=== PATIENT | female | born 1945 | race African-American/Black ===

== ENCOUNTER 2020-06-03 01:20 | Emergency (ER) | payer MEDICARE, OTHER ==
[~2020-06-03] VITALS: Ht 162.6 cm; Wt 68.2 kg
[2020-06-03 01:20] VITALS: BP 155/83
[2020-06-03 15:02] VITALS: BP 140/65
== END 2020-06-03 15:01 ==
LOC: MED 01:20
DX: S50.312A Abrasion of left elbow, initial encounter (principal); I10 Essential (primary) hypertension; N28.9 Disorder of kidney and ureter, unspecified; W06.XXXA Fall from bed, initial encounter; Y93.89 Activity, other specified; Y92.89 Other specified places as the place of occurrence of the external cause; Y99.8 Other external cause status
CPT/HCPCS: 99285

== ENCOUNTER 2020-06-27 07:32 | Inpatient (IN) | payer MEDICARE, OTHER, SELFPAY ==
[~2020-06-27] VITALS: Ht 160 cm; Wt 63.5 kg
[2020-06-27 07:32] VITALS: BP 152/79
--- NOTE | 2020-06-27 07:32 | NUR ---
PATIENT BIBA BLS TO ER BED 10
--- NOTE | 2020-06-27 07:32 | NUR ---
PATIENT PRESENTS TO ED [facility]IA [facility] FROM [facility]. WITH C/O CRACKED DIALYSIS CATHETER, PT RECEIVES DIALYSIS ON MONDAY, MONDAY, MONDAY. DENIES N/V/D; SKIN IS PINK/WARM/DRY; AAOX4. LUNGS CLEAR BL; HR EVEN AND REGULAR; PT DENIES ANY FEVER, CP, SOB, OR COUGH AT THIS TIME; PATIENT STATES PAIN OF 0/10 AT THIS TIME; VSS; PATIENT POSITIONED FOR COMFORT;WARM BLANKETS GIVEN; HOB ELEVATED; BEDRAILS UP X2; BED DOWN. ER MD MADE AWARE OF PT STATUS.
--- NOTE | 2020-06-27 08:08 | NUR ---
DR. HERNANDEZ AT BEDSIDE FOR EXAM
[2020-06-27 08:43] LABS: BASOPHILS # (AUTO) 0.1 K/uL (0.00-0.22); BASOPHILS % (AUTO) 0.9 % (0.0-2.0); EOSINOPHILS # (AUTO) 0.3 K/uL (0-0.4); EOSINOPHILS % (AUTO) 2.6 % (0.0-4.0); HEMATOCRIT 27.4 % (36-48); HEMOGLOBIN 8.7 g/dL (12.0-16.0); LYMPHOCYTES # (AUTO) 0.8 K/uL (2.5-16.5); LYMPHOCYTES % (AUTO) 6.8 % (20.5-51.1); MEAN CORPUSCULAR HEMOGLOBIN 30 pg (27-31); MEAN CORPUSCULAR HGB CONC 32 g/dL (33-37); MEAN CORPUSCULAR VOLUME 93.3 fL (80-94); MONOCYTES # (AUTO) 1.2 K/uL (0.8-1.0); NEUTROPHILS # (AUTO) 9.8 K/uL (1.8-7.7); NEUTROPHILS % (AUTO) 79.7 % (42.2-75.2); PLATELET COUNT (AUTO) 767 K/uL (140-450); RED BLOOD CELL COUNT(AUTO) 2.94 MIL/uL (4.20-5.40); RED CELL DISTRIBUTION WIDTH 16.6 % (11.6-13.7); WHITE BLOOD COUNT (AUTO) 12.3 K/uL (4.8-10.8)
[2020-06-27 09:30] LABS: ALBUMIN 3.3 g/dL (3.4-5.0); ANION GAP 12.3 (8-16); ASPARTATE AMINOTRANSFERASE 14 U/L (15-37); CARBON DIOXIDE 30.8 mmol/L (21-32); CHLORIDE 98 mmol/L (98-107); GLUCOSE 104 mg/dL (74-106); POTASSIUM 4.1 mmol/L (3.5-5.1); SODIUM SERUM 137 mmol/L (136-145); TOTAL BILIRUBIN 0.4 mg/dL (0.0-1.0); UREA NITROGEN, BLOOD 39 mg/dL (7-18)
[2020-06-27 09:35] LABS: CREATININE 7.8 mg/dL (0.6-1.3)
--- NOTE | 2020-06-27 09:35 | NUR ---
CRITICAL VALUE RECEIVED FROM CREATININE 7.8 Addendum: 06/27/[address] MARY ALMAGUERIED
[2020-06-27] MEDS ORDERED: MORPHINE SULFATE 2 MG/ML SYR IVP PRN (09:55)
[2020-06-27] MEDS ORDERED: HYDROcodone/APAP 5/325 MG 1 TAB TAB PO PRN (09:55)
[2020-06-27] MEDS ORDERED: DOCUSATE SODIUM 100 MG GELCAP PO PRN (09:55)
[2020-06-27] MEDS ORDERED: ONDANSETRON 4 MG/2 ML VIAL IM/IVP PRN (09:55)
[2020-06-27] MEDS ORDERED: NACL 0.9% 1,000 ML IV SCH (09:55)
[2020-06-27] MEDS ORDERED: ZOLPIDEM 5 MG TAB PO PRN (09:55)
[2020-06-27] MEDS ORDERED: ACETAMINOPHEN 325 MG TAB PO PRN (09:55)
[2020-06-27] MEDS ORDERED: MAG SULF 2000 MG/WATER PREMIX 50 ML IV PRN (10:00)
[2020-06-27] MEDS ORDERED: [UNRECOGNIZED DRUG - CODE] PO (10:36)
[2020-06-27] MEDS ORDERED: CARER90 PO (10:36)
[2020-06-27] MEDS ORDERED: GABA100C PO (10:36)
[2020-06-27] MEDS ORDERED: ACET-2619 PO ×2 (10:36)
[2020-06-27] MEDS ORDERED: METO100T14 PO (10:36)
[2020-06-27] MEDS ORDERED: VITA1TAB44 PO (10:36)
[2020-06-27] MEDS ORDERED: CALC667T8 PO (10:36)
[2020-06-27] MEDS ORDERED: HYDR-3233 PO (10:36)
[2020-06-27] MEDS ORDERED: [UNRECOGNIZED DRUG - CODE] PO (10:36)
[2020-06-27] MEDS ORDERED: DOCU-299 PO (10:36)
[2020-06-27] MEDS ORDERED: HYDR-5122 PO (10:36)
[2020-06-27] MEDS ORDERED: BRIM5SOL3 OP (10:36)
[2020-06-27] MEDS ORDERED: LACT25CA (10:36)
[2020-06-27 11:12] LABS: CHOL/HDL RATIO 2.2 (1-4.5); MAGNESIUM 2.7 mg/dL (1.8-2.4); PHOSPHORUS 2.8 mg/dL (2.5-4.9)
--- NOTE | 2020-06-27 12:00 | NUR ---
AWAKE AND ALERT. DENIES PAIN OR DISCOMFORT. C/O BEING COLD, WARM BLANKETS GIVEN.
--- NOTE | 2020-06-27 14:25 | NUR ---
C/O NAUSEA. PT IS ANXIOUS AND SLIGHTLY RESTLESS. MEDICATED ORDERED FOR NAUSEA & ANXIETY. ASSISTED WITH REPOSITIONING. MADE COMFORTABLE
[2020-06-27] MEDS: LORazepam 2 MG/ML VIAL IM/IVP PRN (14:41)
--- NOTE | 2020-06-27 16:30 | NUR ---
DR. LY AT BEDSIDE FOR EXAM
--- NOTE | 2020-06-27 18:37 | NUR ---
RESTING IN BED WITH EYES CLOSED. RESPIRATIONS REGULAR AND UNLABORED. CM REMAINS SR WITHOUT ECTOPY. REMAINS NPO
--- NOTE | 2020-06-27 19:16 | NUR ---
RECEIVED REPORT FROM HAYLEE MOSS FOR CONTINUATION OF CARE.
--- NOTE | 2020-06-27 19:25 | NUR ---
REPOSITIONED PT FOR COMFORT IN BED, BED IS LOCKED AND IN LOWEST POSITION. SIDE RAILS ARE UP X2 FOR PT SAFETY. PT IS CONNECTED TO THE PLASTICS TECHNICIAN. PT IS NOT IN ANY ACUTE DISTRESS AT THIS TIME. WILL CONTINUE TO MONITOR.
--- NOTE | 2020-06-27 19:50 | NUR ---
REPOSITIONED PT FOR COMFORT AND SAEFTY. SIDE RAILS X2. BED IS LOCKED AND IN LOWEST POSITION. PT CONNECTED TO THE HOLLOW WARE MAKER. SAO2 @95%
[2020-06-27 20:00] VITALS: BP 182/95
--- NOTE | 2020-06-27 20:08 | NUR ---
CALLED AND GAVE REPORT TO HAYLEE PETERSEN FOR CONTINUATION OF CARE.
--- NOTE | 2020-06-27 20:30 | NUR ---
ADMITTED 74 Y/O FEMALE FROM [facility]. ALERT ORIENTED, PT KNOWS HER NAME, BIRTHDAY AND WHERE SHE IS. ABLE TO MAKE NEEDS KNOWN. ON ROOM AIR, HAS RAC 20 G, INTACT, LEFT UPPER CHEST DIALYSIS CATH. ON NPO, MRSA SWAB DONE, V/S TAKEN, ORIENTED TO ROOM, W/ OPEN SUPERFICIAL WOUND ON SACROCOCCYX. FALL PRECAUTION IN PLACE, SAFETY MEASURES IN PLACE, CALL LIGHT WITHIN REACH.
--- NOTE | 2020-06-27 20:30 | NUR ---
Patient will be admitted to care of DR. WALLER. Admited to TELEMETRY. Will go to room 107B. Belongings list completed. Report to HAYLEE PETERSEN.
--- NOTE | 2020-06-27 21:00 | NUR ---
PT REFUSED HEPARIN SQ, INFORMED THE RISKS AND BENEFITS, STILL REFUSED X3, SAID THAT SHE WANTS TO SLEEP. NO SOB. WILL MONITOR, CALL LIGHT WITHIN REACH.
--- NOTE | 2020-06-27 21:00 | NUR ---
INFORMED DR. WALLER RE: HIGH BP OF PT. ORDERED TO INFORM DR. GOLDBERG. NOTED. PT IS NOT IN DISTRESS, DENIES PAIN, NO SOB, WILL MONITOR CLOSELY, CALL LIGHT WITHIN REACH.
[2020-06-28] VITALS: BP 180/98
[2020-06-28] MEDS ORDERED: HYDROcodone/APAP 5/325 MG 1 TAB TAB PO PRN
[2020-06-28] MEDS ORDERED: hydrALAZINE 20 MG/ML VIAL IVP PRN (00:40)
[2020-06-28] MEDS ORDERED: DILTIAZEM 30 MG TAB PO SCH (00:40)
[2020-06-28] MEDS ORDERED: hydrALAZINE 10 MG TAB PO SCH (00:40)
--- NOTE | 2020-06-28 00:43 | NUR ---
INFORMED DR. HOYT OF HIGH BP, NEW ORDERS NOTED AND CARRIED OUT. PT IS NOT IN DISTRESS AND SLEEPING, RESPIRATION EVEN AND UNLABORED.
--- NOTE | 2020-06-28 01:02 | NUR ---
BP - 180/98, HR - 103. MEDICATED WITH APRESOLINE AND CARDIZEM PER MD ORDER.
--- NOTE | 2020-06-28 02:30 | NUR ---
RESTING COMFORTABLY SLEEPING IN BED, BP - 168/93, HR - 98. PATIENT IS ASYMPTOMATIC.
[2020-06-28 04:00] VITALS: BP 158/93
[2020-06-28 06:57] LABS: BASOPHILS # (AUTO) 0.1 K/uL (0.00-0.22); BASOPHILS % (AUTO) 0.5 % (0.0-2.0); EOSINOPHILS # (AUTO) 0.2 K/uL (0-0.4); EOSINOPHILS % (AUTO) 1.6 % (0.0-4.0); HEMATOCRIT 27.1 % (36-48); HEMOGLOBIN 8.9 g/dL (12.0-16.0); LYMPHOCYTES # (AUTO) 0.9 K/uL (2.5-16.5); MEAN CORPUSCULAR HEMOGLOBIN 30 pg (27-31); MEAN CORPUSCULAR HGB CONC 33 g/dL (33-37); MEAN CORPUSCULAR VOLUME 93.2 fL (80-94); MONOCYTES # (AUTO) 1.1 K/uL (0.8-1.0); MONOCYTES % (AUTO) 7.6 % (1.7-9.3); NEUTROPHILS # (AUTO) 12.7 K/uL (1.8-7.7); PLATELET COUNT (AUTO) 836 K/uL (140-450); RED BLOOD CELL COUNT(AUTO) 2.91 MIL/uL (4.20-5.40); RED CELL DISTRIBUTION WIDTH 16.3 % (11.6-13.7); WHITE BLOOD COUNT (AUTO) 15.1 K/uL (4.8-10.8)
[2020-06-28 07:01] LABS: ANION GAP 13.1 (8-16); CARBON DIOXIDE 29.8 mmol/L (21-32); CHLORIDE 99 mmol/L (98-107); GLUCOSE 75 mg/dL (74-106); POTASSIUM 4.9 mmol/L (3.5-5.1); SODIUM SERUM 137 mmol/L (136-145); UREA NITROGEN, BLOOD 49 mg/dL (7-18)
[2020-06-28 07:03] LABS: MAGNESIUM 2.7 mg/dL (1.8-2.4); PHOSPHORUS 3.3 mg/dL (2.5-4.9)
--- NOTE | 2020-06-28 07:11 | NUR ---
at 0705 received critical lab result of creatinin=9.4.endorsed to am edward.
[2020-06-28 07:19] LABS: CREATININE 9.4 mg/dL (0.6-1.3)
--- NOTE | 2020-06-28 07:19 | NUR ---
PATIENT HAS BEEN SCREENED AND CATEGORIZED HIGH NUTRITION RISK. PATIENT WILL BE SEEN WITHIN 1-2 DAYS OF ADMISSION. 06/29/20-06/30/20 MACARENA ROSALES MS, RDN
[2020-06-28 07:31] LABS: LYMPHOCYTES % (AUTO) 5.8 % (20.5-51.1); NEUTROPHILS % (AUTO) 84.5 % (42.2-75.2)
--- NOTE | 2020-06-28 07:44 | NUR ---
PT IS IN STABLE CONDITION, ENDORSED TO AM SHIFT RN FOR CONTINUITY OF CARE.
--- NOTE | 2020-06-28 07:45 | NUR ---
RECEIVED REPORT FROM NIGHT NURSE PATIENT IS AAOX3, NPO EXCEPT MEDS, CRACK DIALYSIS CATHETER ON LEFT UPPER CHEST, HEMODIALYSIS EVERY MONDAY, MONDAY AND MONDAY, NO DIALYSIS DONE YESTERDAY, BED BOUND,SKIN NON INTACT, IV SITES INTACT ON RIGHT AC. SAFETY MEASURES IN PLACE AND CALL LIGHT WITHIN REACH. WILL CONTINUE TO MONITOR.
[2020-06-28 08:00] VITALS: BP 161/89
--- NOTE | 2020-06-28 08:00 | NUR ---
CALLED DR MARTINEZ FOR PATIENT DIALYSIS TODAY
[2020-06-28] MEDS ORDERED: NACL 0.9% IRR 250 ML BOTTLE IR SCH (08:25)
--- NOTE | 2020-06-28 08:30 | NUR ---
CALLED DIALYSIS NURSE ROXANA FOR PATIENT HEMODIALYSIS TODAY.
--- NOTE | 2020-06-28 08:45 | NUR ---
MEDICATIONS DUE GIVEN CHECK VITAL SIGNS PRIOR TO MEDICATION BP 161/90 MA 85. BP MEDICATIONS NOT GIVEN PATIENT IS SCHEDULED FOR DIALYSIS TODAY.NO DISTRESS NOTED.
[2020-06-28] MEDS: DOCUSATE SODIUM 100 MG GELCAP PO SCH ×2 (08:49→21:14)
[2020-06-28] MEDS: GABAPENTIN 100 MG CAP PO SCH ×2 (08:50→20:59)
[2020-06-28] MEDS: CALCIUM ACETATE 667 MG TAB PO SCH ×3 (08:50→17:12)
[2020-06-28] MEDS: VIT-B COMP/VIT-C/FOLIC ACID 1 TAB PO SCH (08:50)
[2020-06-28] MEDS: hydrALAZINE 10 MG TAB PO SCH ×2 (09:00→21:00)
[2020-06-28] MEDS: METOPROLOL SUCCINATE 50 MG TABER PO SCH (09:00)
[2020-06-28] MEDS: DILTIAZEM 30 MG TAB PO SCH ×2 (09:00→20:59)
--- NOTE | 2020-06-28 10:00 | NUR ---
CONSENT FOR DIALYSIS DONE.
--- NOTE | 2020-06-28 10:00 | NUR ---
HEMODIALYSIS STARTED AT THIS TIME BP 189/94 LA 139 RR 16 AND OXYGEN SAT 98%.
[2020-06-28 10:06] LABS: T4 (THYROXINE) 7.1 ug/dL (4.5-12.0)
--- NOTE | 2020-06-28 11:57 | NUR ---
PATIENT COMPLAINS OF PAIN 8/ GAVE MEDICATION.
--- NOTE | 2020-06-28 13:00 | NUR ---
HEMODIALYSIS COMPLETE WITH AN OPUTPUT OF 1300LITERS AND HEPARIN [id number] UNITS GIVEN BY DIALYSIS NURSE.
--- NOTE | 2020-06-28 15:00 | NUR ---
PATIENT DIET CHANGED TO RENAL DIET. AND DR GOLDBERG CHECKED ON THE PATIENT AND SAID SHES OK.
[2020-06-28] MEDS: BRIMONIDINE TARTRATE 0.2% OP 5 ML BTL OP SCH ×2 (16:00→21:13)
--- NOTE | 2020-06-28 19:10 | NUR ---
RECEIVED REPORT OF PT IN STABLE CONDITION.NO S/S OF ANY DISTRESS NOTED.CALL LIGHT WITHIN REACH.LUNGS CLEAR.VS STABLE.
--- NOTE | 2020-06-28 19:20 | NUR ---
ENDORSED TO NIGHT NURSE FOR CONTINUITY OF CARE. PT IS STABLE.
[2020-06-28 20:20] VITALS: BP 162/100
--- NOTE | 2020-06-29 01:41 | NUR ---
SLEEPING.NO SOB,NO PAIN NOW.WILL CONT.MONITORING.
[2020-06-29 04:12] VITALS: BP 170/97
[2020-06-29] MEDS: LORazepam 2 MG/ML VIAL IM/IVP PRN (05:37)
--- NOTE | 2020-06-29 05:48 | NUR ---
AT 0400,AP=765/97,APRESOLINE IVP GIVEN NOW IS 152/86.HAD C/O ANXIETY,ATIVAN IVP GIVEN.
[2020-06-29 07:30] LABS: MAGNESIUM 2.4 mg/dL (1.8-2.4); PHOSPHORUS 2.7 mg/dL (2.5-4.9)
[2020-06-29 07:32] LABS: BASOPHILS # (AUTO) 0.1 K/uL (0.00-0.22); BASOPHILS % (AUTO) 0.8 % (0.0-2.0); EOSINOPHILS # (AUTO) 0.3 K/uL (0-0.4); EOSINOPHILS % (AUTO) 1.7 % (0.0-4.0); HEMATOCRIT 27.8 % (36-48); HEMOGLOBIN 8.8 g/dL (12.0-16.0); LYMPHOCYTES % (AUTO) 6.5 % (20.5-51.1); MEAN CORPUSCULAR HEMOGLOBIN 30 pg (27-31); MEAN CORPUSCULAR HGB CONC 32 g/dL (33-37); MEAN CORPUSCULAR VOLUME 94.1 fL (80-94); MONOCYTES # (AUTO) 1.3 K/uL (0.8-1.0); NEUTROPHILS # (AUTO) 13.2 K/uL (1.8-7.7); PLATELET COUNT (AUTO) 924 K/uL (140-450); RED BLOOD CELL COUNT(AUTO) 2.95 MIL/uL (4.20-5.40); RED CELL DISTRIBUTION WIDTH 16.1 % (11.6-13.7); WHITE BLOOD COUNT (AUTO) 15.9 K/uL (4.8-10.8)
--- NOTE | 2020-06-29 07:36 | NUR ---
ENDORSED TO AM RN.IN STABLE CONDITION.
--- NOTE | 2020-06-29 07:37 | NUR ---
RECEIVED REPORT FROM DEAL ARCHITECT NURSE GILDA FOR CONTINUITY OF CARE. PATIENT IN STABLE CONDITION. RESPIRATIONS EVEN AND UNLABORED, ROOM AIR. IV INTACT AND PATENT. SAFETY MEASURES IN PLACE. BED IN LOW POSITION. BED ALARM ON. CALL LIGHT WITHIN REACH. WILL CONTINUE TO MONITOR.
[2020-06-29 08:00] VITALS: BP 165/102
[2020-06-29 08:21] LABS: ANION GAP 17.6 (8-16); CARBON DIOXIDE 26.8 mmol/L (21-32); CHLORIDE 99 mmol/L (98-107); GLUCOSE 83 mg/dL (74-106); POTASSIUM 4.4 mmol/L (3.5-5.1); SODIUM SERUM 139 mmol/L (136-145); UREA NITROGEN, BLOOD 36 mg/dL (7-18)
[2020-06-29 08:32] LABS: CREATININE 7.4 mg/dL (0.6-1.3)
[2020-06-29] MEDS: VIT-B COMP/VIT-C/FOLIC ACID 1 TAB PO SCH (09:14)
[2020-06-29] MEDS: DOCUSATE SODIUM 100 MG GELCAP PO SCH (09:14)
[2020-06-29] MEDS: hydrALAZINE 10 MG TAB PO SCH (09:15)
[2020-06-29] MEDS: CALCIUM ACETATE 667 MG TAB PO SCH ×3 (09:15→16:12)
[2020-06-29] MEDS: METOPROLOL SUCCINATE 50 MG TABER PO SCH (09:15)
--- NOTE | 2020-06-29 09:15 | NUR ---
GAVE ORDERED DUE MEDICATIONS AT THIS TIME. PATIENT TOLERATED WELL.
[2020-06-29] MEDS: DILTIAZEM 30 MG TAB PO SCH (09:16)
[2020-06-29] MEDS: BRIMONIDINE TARTRATE 0.2% OP 5 ML BTL OP SCH (09:16)
[2020-06-29] MEDS: GABAPENTIN 100 MG CAP PO SCH (09:16)
--- NOTE | 2020-06-29 11:44 | NUR ---
PATIENT SLEEP AT THIS TIME. RESPIRATIONS EVEN AND UNLABORED, ROOM AIR. BED IN LOW POSITION. BED ALARM ON. CALL LIGHT WITHIN REACH. WILL CONTINUE TO MONITOR.
--- NOTE | 2020-06-29 12:01 | NUR ---
ANGEL STATISTICAL TECHNICIAN: CALLED [facility] PATIENT CAN RETURN TO ROOM 24-B UNDER DR. WALLER. Addendum: 06/29/20 at 1216 by Nevin Dougherty CM ANGEL STATISTICAL TECHNICIAN: [facility] [address] [place] [id number] NOTIFIED HAYLEE TABARES THAT TRANSPORTATION HAS BEEN SET UP FOR 2:00 PM.
--- NOTE | 2020-06-29 12:19 | NUR ---
WOUND CARE CONSULT NOTE, SACRALCOCCYX MAD SKIN RED SLIGHTLY DENUDED. PERINEUM/LABIAS TO ALVARO RECTAL MULTIPLE SMALL PIN POINTS LESIONS, SKIN MOIST, C/O PAIN AND ITCHNESS, POSSIBLE FUNGAL OR HERPES INFECTION. PT. IS AAX4, PT ANA OF HX OF HERPES. ABOVE FINDING REPORT TO DR. WALLER IN PERSON. RECOMMENDATIONS: -APPLY HYDRAGUARD TO SACRALCOCCYX BID AND CONSTRUCTION PROJECT ASSISTANT -COLD COMPRESS TO LABIALS AND ALVARO RECTAL BID -CLEANSE LABIALS AND PERIRECTAL GENTLY WITH MILD SOAP AND WATER, PAT DRY, APPLY ANTIFUNGAL CREAM BID AND PRN IF SOILING, KEEP AREA ROSA. POC DISCUSSED WITH PT. AND PT VERBALIZES UNDERSTANDING.
--- NOTE | 2020-06-29 13:00 | NUR ---
GAVE REPORT TO LIDIA STAFF NURSE AT [place] FOR CONTINUITY OF CARE. ALL QUESTIONS ANSWERED AT THIS TIME.
--- NOTE | 2020-06-29 13:15 | NUR ---
SPOKE WITH PATIENT SON TIMOTHY HENSON TO INFORM PATIENT WILL RETURN TO [facility] ROOM 24-B. TIMOTHY VERBALIZED UNDERSTANDING OF INFORMATION.
--- NOTE | 2020-06-29 13:40 | NUR ---
POSITIVE MRSA TORB KIRAN TINOCO AND BACTRAN NASAL X5 DAYS
--- NOTE | 2020-06-29 13:53 | NUR ---
SOCIAL WORK NOTE: Patient's Orientation Unable To Assess Information Provided By TIMOTHY HENSON - SON Comments SW WAS UNABLE TO MEET PATIENT AT BEDSIDE. SW COMPLETED ASSESSMENT WITH PATIENT'S SON. SW LEFT GRANDSON VM PRIOR. Automatic Screwmaker, Realtionship and Phone Number SREE BATEMAN [phone] TIMOTHY GARCIA [phone] Healthcare Power of Etl Programmer No Does Patient Have a POLST No Identifying Problems No Social Work Triggers Is A Social Work Consult Needed No Mandate Report Filed No Explanation Of Identifying Problems PATIENT IS A 74-YEAR-OLD FEMALE ADMITTED FOR MALFUNCTIONING HD CATHETER. PATIENT HAS PMHX OF DIABETES, HYPERTENSION, AND RENAL DISEASE. PATIENT WAS ADMITTED FROM [facility]. [facility] [phone] Pre-Admission Level Of Functioning Status Total Care Level Of Functioning Comment PER SON, PATIENT REQUIRES TOTAL ASSISTANCE WITH ADLS. Prior Resources/Services Used In Last 12 Months SNF [facility] Prior Resources/Service Comments SON STATED THAT PATIENT IS SNF AND ON A BED HOLD. Prior DME Wheelchair Dialysis Hemodialysis Name And Phone Number of Dialysis Facility [facility] ESRD Outpatient Days T TH SAT ESRD Outpatient Time UNKNOWN Patient Had Caregiver No Home Support No Caregiver Issues Financial Issues No Known Financial Issue Factors/Needs No D/C Needs Identified Explanation And Or Other Factors Affecting/Possible DC Needs SON REQUESTED FOR PATIENT TO RETURN TO [facility] AT DISCHARGE. Pt/Rep Participated In Discharge Plan Yes Patient/Family Agress With Discharge Plan Yes Discharge Plan Comments TENTATIVE DISCHARGE PLAN IS FOR PATIENT TO RETURN TO [facility]. DC Plan Status Initiated
--- NOTE | 2020-06-29 15:30 | NUR ---
DRESSED PATIED AT THIS TIME FOR UPCOMING DISCHARGE TO [place]. PATIENT TOLERATED WELL.
[2020-06-29] MEDS ORDERED: MUPIROCIN CA NASAL 2% 1GM TUBE NS SCH (16:00)
[2020-06-29] MEDS ORDERED: CHLORHEXADINE GLUC 2% CLOTH TP SCH (16:00)
--- NOTE | 2020-06-29 17:10 | NUR ---
LEFT MESSAGE NO ANSWER WITH AUTOMATIC SPLICING MACHINE OPERATOR FRANCIS WU PATIENT WAS NOT PICKED UP NEED TIME UPDATE.
--- NOTE | 2020-06-29 19:09 | NUR ---
POSITIVE MRSA KOFI WALLER, KIRAN AVITIA AND BACTRAN NASAL X5 DAYS Addendum: 06/29/20 at 1911 by Maria C Frazier RN WRONG TIME
--- NOTE | 2020-06-29 19:35 | NUR ---
GAVE DISCHARGE INSTRUCTIONS AT THIS TIME. REMOVED IV, LUMEN INTACT. REMOVED ID BAND. PATIENT PLACED ON RNEY IN STABLE CONDITION WITH BELONGINGS.
== END 2020-06-29 19:35 | DRG 682 ==
LOC: MED 07:32 → MTU 09:53 → OBSVTOIN 09:53
PROC: 5A1D70Z Performance of Urinary Filtration, Intermittent, Less than 6 Hours Per Day (ICD-10-PCS; principal; 2020-06-27)
DX: I12.0 Hypertensive chronic kidney disease with stage 5 chronic kidney disease or end stage renal disease (principal); N17.0 Acute kidney failure with tubular necrosis; N18.6 End stage renal disease; E44.1 Mild protein-calorie malnutrition; D63.8 Anemia in other chronic diseases classified elsewhere; E11.22 Type 2 diabetes mellitus with diabetic chronic kidney disease; Z20.828 Contact with and (suspected) exposure to other viral communicable diseases; K59.00 Constipation, unspecified; E11.40 Type 2 diabetes mellitus with diabetic neuropathy, unspecified; D72.829 Elevated white blood cell count, unspecified; H40.9 Unspecified glaucoma; R26.81 Unsteadiness on feet; M79.7 Fibromyalgia; I48.91 Unspecified atrial fibrillation; E21.3 Hyperparathyroidism, unspecified; Z68.24 Body mass index [BMI] 24.0-24.9, adult; B95.62 Methicillin resistant Staphylococcus aureus infection as the cause of diseases classified elsewhere; Z99.2 Dependence on renal dialysis; Z82.49 Family history of ischemic heart disease and other diseases of the circulatory system; Z83.3 Family history of diabetes mellitus; Z98.41 Cataract extraction status, right eye; Z98.42 Cataract extraction status, left eye
CPT/HCPCS: 36415; 71045; 80048; 80053; 82150; 83036; 83690; 83735; 83880; 84100; 84134; 84436; 84443; 84484; 85025; 85610; 85730; 87040; 87081; 93005; 96374; 96375; 99285; J0360; J1644; J2060; J2270; J2405

== ENCOUNTER 2020-07-12 23:18 | Inpatient (IN) | payer MEDICARE, OTHER ==
[~2020-07-12] VITALS: Ht 160 cm; Wt 73.5 kg
[~2020-07-12 23:18] MED LIST: ACET-2619 PO; ACYC800T1 PO; BRIM5SOL3 OP; CALC667T8 PO; CARER90 PO; DOCU-299 PO; GABA100C PO; HYDR-3233 PO; HYDR-5122 PO; IV Meropenam IV; LACT25CA; METO100T14 PO; VITA1TAB44 PO; [UNRECOGNIZED DRUG - CODE] PO; [UNRECOGNIZED DRUG - CODE] PO
[2020-07-12 23:31] VITALS: BP 141/81
--- NOTE | 2020-07-12 23:34 | NUR ---
pt taken to ER bed 6 via karolinardmitri.
--- NOTE | 2020-07-12 23:38 | NUR ---
LAB AT BEDSIDE
--- NOTE | 2020-07-12 23:40 | NUR ---
74 Y/O BIBA FROM [facility] C/O ALOC X 1 DAY. GCS OF 11. A/OX1 TO SELF. PERRL. PT NON-VERBAL. PT IS A POOR HISTORIAN. CLEAR LUNG SOUNDS. NO EDEMA IN UPPER OR LOWER EXTREMITIES. PULSE+2 THROUGHOUT. PT IS NON-AMBULATORY. PT IS NOT IN ANY ACUTE DISTRESS AT THIS TIME. PT CONNECTED TO THE BINDER AND BOX BUILDER. WILL CONTINUE TO MONITOR. PMH: SEE CHART NKA
--- NOTE | 2020-07-12 23:45 | NUR ---
EMT WITH EKG AT BEDSIDE
[2020-07-12 23:53] LABS: BASOPHILS # (AUTO) 0.2 K/uL (0.00-0.22); BASOPHILS % (AUTO) 1.1 % (0.0-2.0); EOSINOPHILS # (AUTO) 0.3 K/uL (0-0.4); EOSINOPHILS % (AUTO) 2.5 % (0.0-4.0); HEMATOCRIT 27.9 % (36-48); HEMOGLOBIN 8.9 g/dL (12.0-16.0); LYMPHOCYTES # (AUTO) 1.8 K/uL (2.5-16.5); LYMPHOCYTES % (AUTO) 13.2 % (20.5-51.1); MEAN CORPUSCULAR HEMOGLOBIN 29 pg (27-31); MEAN CORPUSCULAR HGB CONC 32 g/dL (33-37); MEAN CORPUSCULAR VOLUME 92.5 fL (80-94); MONOCYTES # (AUTO) 1.2 K/uL (0.8-1.0); MONOCYTES % (AUTO) 8.5 % (1.7-9.3); NEUTROPHILS # (AUTO) 10.4 K/uL (1.8-7.7); NEUTROPHILS % (AUTO) 74.7 % (42.2-75.2); PLATELET COUNT (AUTO) 692 K/uL (140-450); RED BLOOD CELL COUNT(AUTO) 3.01 MIL/uL (4.20-5.40); RED CELL DISTRIBUTION WIDTH 16.6 % (11.6-13.7); WHITE BLOOD COUNT (AUTO) 13.9 K/uL (4.8-10.8)
[2020-07-13 00:13] LABS: ALBUMIN 3.2 g/dL (3.4-5.0); ASPARTATE AMINOTRANSFERASE 22 U/L (15-37); CHLORIDE 99 mmol/L (98-107); GLUCOSE 86 mg/dL (74-106); POTASSIUM 3.4 mmol/L (3.5-5.1); SODIUM SERUM 138 mmol/L (136-145); TOTAL BILIRUBIN 0.4 mg/dL (0.0-1.0); UREA NITROGEN, BLOOD 32 mg/dL (7-18)
--- NOTE | 2020-07-13 00:15 | NUR ---
PT IS LAYING DOWN WITH HOB IN LOW FOWLERS. PT IS NOT IN ANY ACUTE DISTRESS AT THIS TIME. PT IS CONNECTED TO THE FIGURINE MAKER. SAO2 @100% ROOM AIR. BED IS LOCKED AND IN LOWEST POSITION. SIDE RAILSX1. WILL CONTINUE TO MONITOR.
[2020-07-13 00:18] LABS: ANION GAP 13.6 (8-16); CARBON DIOXIDE 28.8 mmol/L (21-32)
[2020-07-13 00:25] LABS: CREATININE 8.6 mg/dL (0.6-1.3)
--- NOTE | 2020-07-13 01:34 | NUR ---
STRAIGHT CATHETERIZED PT PER ERMD ORDER- URINE SPECIMEN COLLECTED, PT TOLERATED WELL.
--- NOTE | 2020-07-13 01:50 | NUR ---
HANDED FLU AND COVID SWAB TO HAI DOMINGO TECH
--- NOTE | 2020-07-13 01:55 | NUR ---
URINE SPECIMEN PICKED UP BY LAB
[2020-07-13 02:38] LABS: APPEARANCE,URINE SL CLOUDY (CLEAR); BILIRUBIN,URINE 1+ (NEGATIVE); BLOOD, URINE 1+ (NEGATIVE); COLOR,URINE YELLOW (YELLOW); LEUKOCYTE ESTERASE ,URINE 3+ (NEGATIVE); NITRITE, URINE NEGATIVE (NEGATIVE); UGLUCOSE NEGATIVE (NEGATIVE)
--- NOTE | 2020-07-13 02:50 | NUR ---
PT IS RESTING WITH EYES CLOSED. VISIBLE RISE AND FALL OF CHEST NOTED. BED IS LOCKED AND IN LOWEST POSITION. SIDE RAILSX2. PT IS CONNECTED TO THE DIRECTOR PHYSICAL. SAO2 @100%. WILL CONTINUE TO MONITOR.
[2020-07-13 02:56] LABS: WBC,URINE 20-60 /HPF (0-5)
[2020-07-13] MEDS ORDERED: MORPHINE SULFATE 2 MG/ML SYR IVP PRN (03:00)
[2020-07-13] MEDS ORDERED: ONDANSETRON 4 MG/2 ML VIAL IM/IVP PRN (03:00)
[2020-07-13] MEDS ORDERED: DOCUSATE SODIUM 100 MG GELCAP PO PRN (03:00)
[2020-07-13] MEDS ORDERED: ZOLPIDEM 5 MG TAB PO PRN (03:00)
[2020-07-13] MEDS ORDERED: LORazepam 2 MG/ML VIAL IM/IVP PRN (03:00)
[2020-07-13] MEDS ORDERED: HYDROcodone/APAP 5/325 MG 1 TAB TAB PO PRN (03:00)
[2020-07-13 03:15] LABS: BARBITURATE, URINE NEGATIVE ng/ml (NEG <=200); BENZODIAZEPINE, URINE NEGATIVE ng/mL (NEG <=200); CANNABINOID, URINE NEGATIVE ng/mL (NEG <=50); COCAINE, URINE NEGATIVE ng/mL (NEG <=300); OPIATE, URINE POSITIVE ng/mL (NEG <=2000); PHENCYCLIDINE SCREEN,URINE NEGATIVE ng/mL (NEG <=25)
[2020-07-13 03:26] LABS: MAGNESIUM 2.4 mg/dL (1.8-2.4); PHOSPHORUS 4.5 mg/dL (2.5-4.9); THYROID STIMULATING HORMONE 1.34 uIU/mL (0.34-3.74)
[2020-07-13 03:27] LABS: PROTHROMBIN TIME 11.1 secs (10.8-13.4)
--- NOTE | 2020-07-13 03:46 | NUR ---
PT IS RESTING WITH HOB IN LOW FOWLERS. PT IS CONNECTED TO THE HEAD BAGGAGE PORTER. PROVIDED PT WITH A BLANKET AND TURNED OF THE LIGHTS FOR COMFORT. BED IS LOCKED AND IN LOWEST POSITION. SIDE RAILSX2. WILL CONTINUE TO MONITOR.
[2020-07-13] MEDS ORDERED: cefTRIAXone 1,000 MG VIAL ONE (03:49)
--- NOTE | 2020-07-13 04:30 | NUR ---
PT IS RESTING WITH EYES CLOSED. VISIBLE RISE AND FALL OF CHEST NOTED. PT IS CONNECTED TO THE CUT OFF OPERATOR SCORER. PT IS NOT IN ANY ACUTE DISTRESS AT THIS TIME. BED IS LOCKED AND IN LOWEST POSITION. SIDE RAILSX1. WILL CONTINUE TO MONITOR.
--- NOTE | 2020-07-13 05:48 | NUR ---
PT IS SLEEPING. VISIBLE RISE AND FALL OF CHEST NOTED. PT IS CONNECTED TO THE ELECTRONIC SYSTEMS SECURITY ASSESSMENT SAO2@100% ROOM AIR. BED IS LOCKED AND IN LOWEST POSITION. PT IS NOT IN ANY ACUTE DISTRESS AT THIS TIME. SIDE RAILSX1. WILL CONTINUE TO MONITOR.
--- NOTE | 2020-07-13 06:30 | NUR ---
PT IS RESTING WITH HOB IN SEMI FOWLERS POSITION. PT IS CONNECTED TO THE FRAME RUNNER. BED IS LOCKED AND IN LOWEST POSITION. SIDE RAILSX1. PT IS NOT IN ANY ACUTE DISTRESS AT THIS TIME. WILL CONTINUE TO MONITOR.
--- NOTE | 2020-07-13 07:10 | NUR ---
LAB AT BEDSIDE
--- NOTE | 2020-07-13 07:15 | NUR ---
GAVE REPORT TO HAYLEE MARTÍNEZ FOR TRANSFER OF CARE.
--- NOTE | 2020-07-13 07:16 | NUR ---
REPORT RECEIVED FROM HAYLEE LARA.
--- NOTE | 2020-07-13 07:51 | NUR ---
Changed patient to clean gown and diaper, repositioned for comfort, seizure precautions in place, VSS, will continue to monitor.
--- NOTE | 2020-07-13 08:14 | NUR ---
Troponin 0.183--critical value received from lab. Dr Quispe made aware
[2020-07-13] MEDS ORDERED: LORazepam 2 MG/ML VIAL IVP PRN ×2 (08:20→08:30)
[2020-07-13] MEDS ORDERED: levETIRAcetam 100 MG/ML VIAL IV ONE (08:56)
[2020-07-13] MEDS: levETIRAcetam 500 MG in NACL 0.9% 100 ML IV SCH (09:11)
--- NOTE | 2020-07-13 10:20 | NUR ---
Pt sleeping, repositioned for comfort VSS, will continue to monitor.
[2020-07-13] MEDS ORDERED: MEROPENEM 500 MG VIAL IV ONE (11:02)
[2020-07-13] MEDS: MEROPENEM 500 MG in NACL 0.9% 50 ML IV SCH (11:11)
--- NOTE | 2020-07-13 12:13 | NUR ---
Pt had 1 soft BM, changed to clean diaper, repositioned for comfort. Will continue to monitor.
--- NOTE | 2020-07-13 12:18 | NUR ---
SOCIAL WORK NOTE: Patient's Orientation Unable To Assess Information Provided By TIMOTHY HENSON - SON Comments SW WAS UNABLE TO MEET PATIENT AT BEDSIDE TO COMPLETE ASSESSMENT. SW COMPLETED ASSESSMENT WITH PATIENT'S SON, TIMOTHY. Rad Technologist, Realtionship and Phone Number SREE BATEMAN [phone] [facility] Power of Packing Room Worker No Does Patient Have a POLST No Identifying Problems No Social Work Triggers Is A Social Work Consult Needed No Mandate Report Filed No Explanation Of Identifying Problems PATIENT IS A 74-YEAR-OLD FEMALE ADMITTED FOR UTI. PATIENT HAS PMHX OF DEMENTIA, HYPERTENSION, AND RENAL DISEASE. [facility] - [phone] Pre-Admission Level Of Functioning Status Total Care Level Of Functioning Comment PATIENT'S SON STATED THAT PATIENT REQUIRES TOTAL ASSISTANCE WITH ADLS. Prior Resources/Services Used In Last 12 Months SNF [facility] Prior Resources/Service Comments PER SON, PATIENT IS [facility] AND ON A BED HOLD. Prior DME Wheelchair Dialysis Hemodialysis Name And Phone Number of Dialysis Facility [facility] ESRD Outpatient Days T Mon ESRD Outpatient Time 0800 Patient Had Caregiver No Home Support No Caregiver Issues Financial Issues No Known Financial Issue Referral To The Financial Counselor Needed No Factors/Needs SNF/NH Placement Explanation And Or Other Factors Affecting/Possible DC Needs PATIENT'S SON IS AGREEABLE TO PATIENT RETURNING TO [facility]. Pt/Rep Participated In Discharge Plan Yes Patient/Family Agress With Discharge Plan Yes Discharge Plan Comments TENTATIVE DISCHARGE PLAN IS FOR PATIENT TO RETURN HOME. DC Plan Status Initiated
--- NOTE | 2020-07-13 13:36 | NUR ---
Dr. Savage is evaluating the patient at bedside.
--- NOTE | 2020-07-13 13:52 | NUR ---
Performed MRSA swab, walked to lab.
--- NOTE | 2020-07-13 14:17 | NUR ---
Pt repositioned for comfort, HOB elevated, VSS, will continue to monitor.
--- NOTE | 2020-07-13 15:32 | NUR ---
Spoke with Cassie Cisneros, sister for updates
--- NOTE | 2020-07-13 18:43 | NUR ---
Pt had 1 soft BM, changed to a clean diaper, HOB elevated, will continue to monitor.
--- NOTE | 2020-07-13 19:16 | NUR ---
GAVE REPORT TO HAYLEE MARTI, TRANSFERED ALL CARE AT THIS TIME.
--- NOTE | 2020-07-13 19:34 | NUR ---
REPORT RECEIVED FROM MAURICIO LEACH
--- NOTE | 2020-07-13 19:45 | NUR ---
PT HAVING AN EEG PERFORMED AT BEDSIDE
--- NOTE | 2020-07-13 20:10 | NUR ---
LITER BOLUS OF NS STARTED, ORDERD BY MD NIEVES
--- NOTE | 2020-07-13 20:15 | NUR ---
MD NIEVES WANTED TO CARDIOVERT PATIENT, HEARTRATE 145. PADS PLACED ON PT'S CHEST AND PT SHOCKED AT 200 JOLES X 1, MD NIEVES AT BEDSIDE, NO RESULTS FROM SHOCK. HEARTRATE REMAINS AT 144 AT THIS TIME. PT REMAINS ON PACING PADS.
[2020-07-13] MEDS ORDERED: NACL 0.9% 1,000 ML IV ONE (21:10)
--- NOTE | 2020-07-13 21:16 | NUR ---
PT'S HEARTRATE 145 BPM, B/P 135/99. PT NOT RESPONDING TO VERBAL STIMULI, EYES OPEN SPONTANEOUSLY, PT MOVES ARMS AND LEGS SPONTANEOUSLY. PT REMAINS ON BEDSIDE MONITOR AND PACER.
--- NOTE | 2020-07-13 21:51 | NUR ---
SPOKE TO DR HOYT REGARDING PT'S ELEVATED HEARTRATE. HE WANTS THE AUDIT MACHINE OPERATOR TO BE CALLED, MD ALCAZAR.
[2020-07-13] MEDS ORDERED: ADENOSINE 6 MG/2 ML VIAL IVP ONE ×2 (22:40→22:42)
--- NOTE | 2020-07-13 23:27 | NUR ---
PT WAS GIVEN ADENOSINE IV PUSH, 6MG THEN 12MG. MD NIEVES AT BEDSIDE DURING ADMISINTRATION AND RUNNING EKG WAS PERFORMED. HEART RATE CONVERTED TO 80'S. CURRENT HEART RATE 89
[2020-07-14] MEDS ORDERED: DEXTROSE 50% 50 ML SYR IVP PRN (00:15)
[2020-07-14] MEDS ORDERED: levETIRAcetam 100 MG/ML VIAL IV ONE (00:17)
[2020-07-14] MEDS: levETIRAcetam 500 MG in NACL 0.9% 100 ML IV SCH ×3 (00:19→22:35)
[2020-07-14] MEDS ORDERED: DEXTROSE 50% 50 ML SYR IVP ONE (00:29)
[2020-07-14] MEDS: DEXT 5% /NACL 0.9% 1,000 ML IV SCH ×2 (00:41→16:43)
[2020-07-14 00:55] VITALS: BP 121/67
--- NOTE | 2020-07-14 00:55 | NUR ---
RECEIVED PT AAOX1 FROM ER / GURNEY TRANSFER TO BED BY MANUALLY LIFT , SLEEPPING MOST OF THE TIME AWAKEABLE BY SHAKING . O2 SAT 99% TO 98 % , W L CHEST TUNNELLED CATH . W/ IV SITE ON THE LEFT FA - G22 . NPO EXCEPTS MEDS . SAFETY MEASURES IN PLACE - BED ALARM ON . WILL CONT. TO MONITOR
--- NOTE | 2020-07-14 03:35 | NUR ---
UPDATING DR. ALCAZAR ABOUT THE REFERRAL
[2020-07-14 04:00] VITALS: BP 112/65
--- NOTE | 2020-07-14 04:00 | NUR ---
MADE ROUNDS , AWAKEABLE . NO S/SX OF ACUTE DISTRESS NOTED .
--- NOTE | 2020-07-14 05:13 | NUR ---
ACCU CHECK - 71 WILL ENDORSE .
--- NOTE | 2020-07-14 05:18 | NUR ---
PER ER NURSE EEG DONE AT ER . REMIND DR. MOORE - PRAKASH ENDORSE .
--- NOTE | 2020-07-14 06:00 | NUR ---
O2 SAT WNL . AWAKEABLE , NO S/SX OF ACUTE DISTRESS
--- NOTE | 2020-07-14 07:33 | NUR ---
ENDORSED - PT - STABLE .
--- NOTE | 2020-07-14 07:38 | NUR ---
RECEIVED PT FROM BELT BUILDER NURSE, PT IS ASLEEP AND LYING ON THE BED WITH SAFETY AND FALL PRECAUTION IN PLACE, CALL LIGHT WITHIN REACH, PT IS ON ROOM AIR AND RESPIRATION IS EVEN, SATURATING AT 98%, IV LINE NOTED ON THE LFA G. 20 WITH D5NS INFUSING AT60ML/HR, NO SIGN OF DISTRESS NOTED AND WILL MONITOR PT.
[2020-07-14 08:00] VITALS: BP 151/75
[2020-07-14 08:16] LABS: BASOPHILS # (AUTO) 0.1 K/uL (0.00-0.22); BASOPHILS % (AUTO) 0.8 % (0.0-2.0); EOSINOPHILS # (AUTO) 0.3 K/uL (0-0.4); EOSINOPHILS % (AUTO) 1.9 % (0.0-4.0); HEMATOCRIT 27.3 % (36-48); HEMOGLOBIN 8.5 g/dL (12.0-16.0); LYMPHOCYTES % (AUTO) 7.4 % (20.5-51.1); MEAN CORPUSCULAR HEMOGLOBIN 30 pg (27-31); MEAN CORPUSCULAR HGB CONC 31 g/dL (33-37); MEAN CORPUSCULAR VOLUME 95.5 fL (80-94); MONOCYTES # (AUTO) 0.8 K/uL (0.8-1.0); MONOCYTES % (AUTO) 5.8 % (1.7-9.3); NEUTROPHILS # (AUTO) 11.7 K/uL (1.8-7.7); NEUTROPHILS % (AUTO) 84.1 % (42.2-75.2); PLATELET COUNT (AUTO) 747 K/uL (140-450); RED BLOOD CELL COUNT(AUTO) 2.86 MIL/uL (4.20-5.40); RED CELL DISTRIBUTION WIDTH 16.7 % (11.6-13.7); WHITE BLOOD COUNT (AUTO) 13.9 K/uL (4.8-10.8)
[2020-07-14 08:30] LABS: CARBON DIOXIDE 26.7 mmol/L (21-32); CHLORIDE 103 mmol/L (98-107); GLUCOSE 69 mg/dL (74-106); POTASSIUM 3.7 mmol/L (3.5-5.1); SODIUM SERUM 142 mmol/L (136-145); UREA NITROGEN, BLOOD 40 mg/dL (7-18)
--- NOTE | 2020-07-14 08:54 | NUR ---
PATIENT HAS BEEN SCREENED AND CATEGORIZED MODERATE NUTRITION RISK. PATIENT WILL BE SEEN WITHIN 3-5 DAYS OF ADMISSION. 07/15/20 07/17/[address]
[2020-07-14 09:03] LABS: CHOL/HDL RATIO 2.4 (1-4.5)
[2020-07-14 09:34] LABS: CREATININE 10.3 mg/dL (0.6-1.3)
--- NOTE | 2020-07-14 09:55 | NUR ---
SCHEDULED KEPPRA AND HEPARIN ADMINISTERED, PT IS RESTING IN BED, EDUCATION PROVIDED, WILL CONTINUE TO MONITOR.
--- NOTE | 2020-07-14 10:15 | NUR ---
DR. HOYT AND DR. GOLDBERG CAME TO PT'S ROOM AND ASSESSED PT,
[2020-07-14] MEDS: MEROPENEM 500 MG in NACL 0.9% 50 ML IV SCH (10:38)
[2020-07-14] MEDS: BLOOD GLUCOSE MONITORING 1 DEV DEV FS SCH ×3 (11:56→23:00)
[2020-07-14 12:00] VITALS: BP 158/97
--- NOTE | 2020-07-14 12:02 | NUR ---
DC PLANNIN YRS OLD FEMALE PATIENT WAS ADMITTED FROM [facility] WITH A DX OF UTI AND ALOC. PT HAS A HX OF ESRD, DIALYSIS WITH [facility] ON TTH[facility] WITH DR MERRILL , HTN, NEUROPATHY, GLAUCOMA FIBROMYALGIA ,A-FIB AND HYPERTHYROIDISM. CXR SHOWED NO ACUTE CARDIOPULMONARY DISEASE . CT HEAD NO EVIDENCE OF ACUTE INFARCT, BLEED OR FRACTURE. RAPID COVID NEGATIVE INFLUENZA A&B NEGATIVE. PCR IS PENDING. BLOOD AND URINE CULTURE PENDING. ADMINISTERED IVF, IV ABX MEROPENEM AND CONTINUED HOME MEDS. CONSULTED WITH NEPHRO, ID, CARDIO AND NEUROLOGIST. DC PLAN TO GO BACK TO [facility] WHEN STABLE. CM TO FOLLOW Addendum: 07/20/20 at 1607 by Hannah Gomez RN DC PLANNING: PER PRIMARY NURSE PT IS COUGHING WHEN SHE EATS THE PUREE DIET AND NOT SAFE TO CONTINUE FEEDING. NOTIFIED DR PACK WILL FOLLOW UP. Addendum: 07/22/20 at 1127 by Hannah Gomez RN DC PLANNING: G-TUBE PLACEMENT IS SCHEDULED AT [address] LIGHT AND DC PLAN TO SEND HER BACK TO THE FACILITY. CALLED [facility] SPOKE WITH [facility] STATED THEY ARE ON HOLD AND WILL TRY TO SEND HER TO ONE OF [facility]S FACILITY , AND [facility] WILL CALL BACK . CM TO FOLLOW Addendum: 07/23/20 at 1344 by Hannah Gomez RN DC PLANNING: RECEIVED A CALL FROM [facility] NO BED AVAILABLE FOR TODAY , CALLED ALL [facility] CONTRACTED FACILITY [facility], [facility] , [facility] ,[facility] THEY ARE ON HOLD . MANPREET MACE NO FEMALE BED. NOTIFIED PANCHITO BARROS AT [facility] WILL WORK THE K[facility]NET[facility] TOMORROW AND IT WILL TAKE 24-48 HRS. CALLED [facility] SPOKE WITH MARIO STATED THEY ARE DOING THE COVID TEST TODAY AND IF THERE IS NONE POSITIVE WILL GET CLEARED BY TOMORROW FROM THE [facility] TO TAKE PATIENT. CM TO FOLLOW Addendum: 07/24/20 at 1633 by Hannah Gomez RN DC PLANNING: CALLED [facility] SPOKE WITH [facility] STILL ON HOLD FOR ADMISSION, CHECKED WITH OTHER CONTRACTED SNF'S NO ONE IS ACCEPTING PATIENT. CALLED PANCHITO AROUND 9AM MENTION ABOUT [facility] PER PANCHITO SHE REQUESTED IT AND IT TAKES 24 TO 48 HRS AND SPOKE WITH NORMAN AT [place] [phone] EXPLAINED THE KENNETH. AWAITING FOR [facility]. CM TO FOLLOW Addendum: 07/24/20 at 1640 by Hannah Gomez RN DC PLANING: RECEIVED A CALL FROM PANCHITO AT [facility] JUST GOT APPROVED FOR ADMISSION AND SHE SENT THE PAPERWORK AND REVIEWING IT, IF THEY ACCEPT WILL CREATE THE AUTH FOR THEM AND AUTH FOR TRANSPORT # [id number] CAN USE [employer] OR [employer]. [employer] PHONE NUMBER [phone]. CALLED [facility] STILL REVIEWING IF THEY ACCEPT THEY WILL CALL. CM TO FOLLOW
--- NOTE | 2020-07-14 13:10 | NUR ---
CALLED THE PT'S SON, TIMOTHY HENSON AT [phone] AND OBTAINED A CONSENT FOR HEMODIALYSIS FOR THE PT PER ORDER BY DR. GOLDBERG, APARTMENT RENTAL AGENT. TELEPHONE CNSENT WAQS VERIFIED BY ANOTHER RN, LETY.
[2020-07-14 16:00] VITALS: BP 141/95
[2020-07-14] MEDS: LORazepam 2 MG/ML VIAL IVP PRN (16:40)
--- NOTE | 2020-07-14 16:47 | NUR ---
CALLED DR HOYT REGARDING ELEVATED HR (158) , BP142/101, O2 IS CURRENTLY 99, ORDERED ATIVAN Q8H PRN, WILL CONTINUE TO MONITOR.
--- NOTE | 2020-07-14 17:10 | NUR ---
PT WAS STARTED ON DIALYSIS NOW.
--- NOTE | 2020-07-14 19:25 | NUR ---
RECEIVED PT AAOX1 , W/ ONGOING HD - TACHYCARDIC NOTED WHILE DIALYSIS - HR 170 . IV SITE INTACT AND PATENT . SAFETY MEASURES IN PLACE . PLAN OF CARE DISCUSSED BUT POOR UNDERSTANDING . FOR CLOSELY WATCH - WILL INFORM DR. HOYT ABOUT RISING THE HR .
--- NOTE | 2020-07-14 19:25 | NUR ---
ENDORSED PT TO BARREL POLISHER INSIDE NURSE FOR CONTINUITY OF CARE.
[2020-07-14 20:00] VITALS: BP 114/74
--- NOTE | 2020-07-14 20:33 | NUR ---
STOP HD OREDERD - WILL INFORM DR. HOYT AND DR Adam GRIGSBY FOR CONTINUING RISING THE HR - SVT
[2020-07-14] MEDS ORDERED: DILTIAZEM 25 MG/5 ML VIAL IVP SCH (21:30)
--- NOTE | 2020-07-14 22:17 | NUR ---
CARDIZEM TIV GIVEN ORDERED BY DR Adam GRIGSBY . BP WNL . FPOR CLOSELY WATCH .
[2020-07-15] VITALS: BP 140/72
--- NOTE | 2020-07-15 | NUR ---
SLIGHTLY FEBRILE - WILL DO TSB .
--- NOTE | 2020-07-15 01:00 | NUR ---
TEMP RE CHECKED- 99 .6 F
--- NOTE | 2020-07-15 03:00 | NUR ---
PT KEEP MOVING AND PULLING HER HAIR - DIFFICULTY TO RECORD ACCURATE TELE MONITOR TRACING - WILL MEDICATE ATIVAN
[2020-07-15] MEDS: LORazepam 2 MG/ML VIAL IVP PRN (03:38)
--- NOTE | 2020-07-15 03:38 | NUR ---
BP 140 / 78 , HR 123 WITH ARTIFACTS - RR 20 O2 SAT 99 %- ATIVAN TIV GIVEN
[2020-07-15 04:00] VITALS: BP 86/66
--- NOTE | 2020-07-15 05:00 | NUR ---
SLEEPING , AWAKEABLE - O2 SAT WNL
[2020-07-15] MEDS: BLOOD GLUCOSE MONITORING 1 DEV DEV FS SCH ×4 (06:14→21:12)
--- NOTE | 2020-07-15 07:35 | NUR ---
ENDORSED TO AM SHIFT - PT - STABLE .
[2020-07-15 08:00] VITALS: BP 114/74
--- NOTE | 2020-07-15 08:21 | NUR ---
RECEIVED REPORT FROM REEL REPAIRER, A/O X1, UNABLE TO FOLLOW COMMANDS , NO DISCOMFORT NOTED. IV SITE LEFT WRIST INTACT AND PATENT. IVF INFUSING WELL. KEPT PT NPO ORDERED. AWAITING FOR SWALLOWING EVALUATION ,VITALS STABLE WILL CONTINUE TO MONITOR.
[2020-07-15 08:28] LABS: ANION GAP 13.6 (8-16); CARBON DIOXIDE 28.7 mmol/L (21-32); CHLORIDE 105 mmol/L (98-107); GLUCOSE 94 mg/dL (74-106); POTASSIUM 3.3 mmol/L (3.5-5.1); SODIUM SERUM 144 mmol/L (136-145); UREA NITROGEN, BLOOD 23 mg/dL (7-18)
[2020-07-15 08:31] LABS: BASOPHILS # (AUTO) 0.2 K/uL (0.00-0.22); BASOPHILS % (AUTO) 0.7 % (0.0-2.0); EOSINOPHILS # (AUTO) 0.3 K/uL (0-0.4); EOSINOPHILS % (AUTO) 1.2 % (0.0-4.0); HEMATOCRIT 27.2 % (36-48); HEMOGLOBIN 8.4 g/dL (12.0-16.0); LYMPHOCYTES # (AUTO) 1.8 K/uL (2.5-16.5); LYMPHOCYTES % (AUTO) 7.7 % (20.5-51.1); MEAN CORPUSCULAR HEMOGLOBIN 29 pg (27-31); MEAN CORPUSCULAR HGB CONC 31 g/dL (33-37); MEAN CORPUSCULAR VOLUME 95.1 fL (80-94); MONOCYTES # (AUTO) 1.6 K/uL (0.8-1.0); MONOCYTES % (AUTO) 7.1 % (1.7-9.3); NEUTROPHILS # (AUTO) 19.2 K/uL (1.8-7.7); NEUTROPHILS % (AUTO) 83.3 % (42.2-75.2); PLATELET COUNT (AUTO) 670 K/uL (140-450); RED BLOOD CELL COUNT(AUTO) 2.86 MIL/uL (4.20-5.40); RED CELL DISTRIBUTION WIDTH 16.8 % (11.6-13.7)
[2020-07-15] MEDS: levETIRAcetam 500 MG in NACL 0.9% 100 ML IV SCH ×2 (08:40→21:12)
[2020-07-15] MEDS: MEROPENEM 500 MG in NACL 0.9% 50 ML IV SCH (08:44)
[2020-07-15 10:22] LABS: CREATININE 6.8 mg/dL (0.6-1.3)
--- NOTE | 2020-07-15 10:27 | NUR ---
PT STILL THE SAME NOT FOLLOWING COMMANDS, VITALS STABLE WILL CONTINUE TO MONITOR.
[2020-07-15] MEDS: DEXT 5% /NACL 0.9% 1,000 ML IV SCH (10:45)
[2020-07-15 12:00] VITALS: BP 111/72
[2020-07-15] MEDS ORDERED: DILTIAZEM 30 MG TAB PO SCH (12:00)
[2020-07-15] MEDS ORDERED: DILTIAZEM 25 MG/5 ML VIAL IVP SCH ×2 (12:10→18:00)
--- NOTE | 2020-07-15 12:47 | NUR ---
*ST NOTES* Order received, chart reviewed. Pt known to this EQUIPMENT WORKER from previous admission, and evaluated 07/07/2020 with recommendation for Puree/Thin Liquids. Cleared with RN, Hannah, for bedside swallow evaluation attempt. Pt seen bedside, restless, writhing in bed, not opening eyes. Pt did not respond to verbal nor tactile stim, occasionally striking out at RN and EQUIPMENT WORKER when repositioning Pt during oral care and linen change. No phonation emitted/elicited. No biting or functional response during oral care. Ice chip trials x2 attempted with bolus remaining where placed or slipping from oral cavity. Further PO trials deferred d/t poor sustained attention to task. Pt not attentive to task and therefore not appropriate for PO trials at this time. EQUIPMENT WORKER to f/u when pt can sustain attention to task (i.e., track speaker, have some communicative intent, etc). -Caro Torre MA, CCC-EQUIPMENT WORKER
--- NOTE | 2020-07-15 13:00 | NUR ---
DR GRIGSBY VISITED PATIENT NOTIFIED THE RHYTHM SVT AND ORDERED CARDIZEM 10 MG IVP GIVEN FOR HR 150 , RECREATIONAL VEHICLE REPAIRER DISCUSSED WITH DR HOYT ORDERED CARDIZEM 5MG IVP Q6HRS PRN. SWALLOWING EVALUATION DONE BUT PT IS NOT FOLLOWING COMMAND AT THIS TIME STATED TO CALL HER WHEN PT IS AWAKE.
--- NOTE | 2020-07-15 13:07 | NUR ---
DR GRIGSBY MEAT AND SEAFOOD CLERK SEEN PATIENT DISCUSSED THE SVT HR 150 NEW ORDER CARDIZEM 10 MG IVP TO BE GIVEN AND ORDERED CARDIZEM 5MG IVP Q6HRS PRN FOR HR GREATER THAT 150 . SPOKE WITH PT'S SISTER UPDATED PT'S CONDITION , INFORM DR HOYT TO CALL HER PROVIDE THE NUMBER TO DR HOYT [phone] , HAD BM KEPT PT CLEAN AND DRY , PT IS RESTLESS NOT COMPREHENDING UNABLE TO DO SWALLOWING EVAL, KEPT PT NPO FOR NOW . IVF INFUSING WELL WILL CONTINUE TO MONITOR.
[2020-07-15 16:00] VITALS: BP 147/92
[2020-07-15] MEDS: DILTIAZEM 25 MG/5 ML VIAL IVP PRN (18:17)
--- NOTE | 2020-07-15 18:19 | NUR ---
CARDIZEM 5MG IVP GIVEN FOR HR 146 -156 . PT IS ON AND OFF ON A-FIB , PER DR GRIGSBY KINDERGARTNERS HELPER CARDIZEM IVP IS GIVEN WILL CONTINUE TO MONITOR
--- NOTE | 2020-07-15 19:04 | NUR ---
RECEIVED PT AWAKE , HX ALOC , IV SITES INTACT AND PATENT , O2 SAT WNL . ON TELE MONITOR - WITH EPISODE OF INCREASED HR - PER AM NURSE . SAFETY MEASURES IN PLACE - BED ALARM ON . W/ O2 AT 4LPM/ NC - O2 SAT WNL . WILL CONT,. TO MONITOR .
--- NOTE | 2020-07-15 19:04 | NUR ---
SAFETY MAINTAINED CALL LIGHT IN REACH STABLE CONDITION AT THIS TIME ENDORSE THE CARE TO BUSINESS SERVICES REPRESENTATIVE
[2020-07-15 20:00] VITALS: BP 140/85
--- NOTE | 2020-07-15 23:00 | NUR ---
PT VERY MOBILE AND AND PULLING THE SIDE RAILS AND OCASSIONALLY SHOUTING , THERE IS BACK A ND FORTH , SIDE BY SIDE NN MOVING THE TOUNGE - ON S2 PRECAUTION - IF WILL CONT. WILL GIVE ATIVAN - PT. ALREADY GOT DUE KEPPRA TIV - HX S2
[2020-07-16] VITALS: BP 140/84
[2020-07-16] MEDS: LORazepam 2 MG/ML VIAL IVP PRN (00:38)
--- NOTE | 2020-07-16 03:00 | NUR ---
PER TELE MONITOR - THERE INCREASING HR UP TO 152 TO 154 - WILL MEDICATE W/ CARDIZEM ORDERED .
[2020-07-16] MEDS: DILTIAZEM 25 MG/5 ML VIAL IVP PRN ×2 (03:58→15:39)
[2020-07-16 04:00] VITALS: BP 145/90
--- NOTE | 2020-07-16 04:00 | NUR ---
SLEEPING BUT OCASSIONALLY TOUNGUE MOVES SIDE TO SIDE - WILL CONT. TO MONITOR
[2020-07-16] MEDS: DEXT 5% /NACL 0.9% 1,000 ML IV SCH ×2 (04:36→18:50)
--- NOTE | 2020-07-16 06:00 | NUR ---
UPDATING DR. GOLDBERG ABOUT THE HD - AND THE EYES PUFFINESS OF THE PT NOTED AT THIS AM - PT'S FACE SEEMS PUFFY .- WILL ENDORSED . UPDATING DR. MOORE ABOUT THE PT'S TOUNGUE MOVEMENT AND EASILY BACK TO FALL SLEEP - WILL ENDORSE .
[2020-07-16] MEDS: BLOOD GLUCOSE MONITORING 1 DEV DEV FS SCH ×4 (07:08→20:56)
--- NOTE | 2020-07-16 07:40 | NUR ---
RECEIVED REPORT FROM PM RN FOR CONTINUITY OF CARE. PT IS STABLE
--- NOTE | 2020-07-16 07:40 | NUR ---
ENDORSED TO AM -SHIFT - PT - STABLE . ENDORSE TO FF UP DR. GOLDBERG AND DR. MOORE TEXT BACK
[2020-07-16 07:54] LABS: BASOPHILS # (AUTO) 0.1 K/uL (0.00-0.22); BASOPHILS % (AUTO) 0.6 % (0.0-2.0); EOSINOPHILS # (AUTO) 0.3 K/uL (0-0.4); EOSINOPHILS % (AUTO) 1.7 % (0.0-4.0); HEMATOCRIT 25.1 % (36-48); HEMOGLOBIN 7.7 g/dL (12.0-16.0); LYMPHOCYTES # (AUTO) 1.2 K/uL (2.5-16.5); LYMPHOCYTES % (AUTO) 6.3 % (20.5-51.1); MEAN CORPUSCULAR HEMOGLOBIN 29 pg (27-31); MEAN CORPUSCULAR HGB CONC 31 g/dL (33-37); MEAN CORPUSCULAR VOLUME 95.8 fL (80-94); MONOCYTES # (AUTO) 1.2 K/uL (0.8-1.0); MONOCYTES % (AUTO) 6.1 % (1.7-9.3); NEUTROPHILS % (AUTO) 85.3 % (42.2-75.2); PLATELET COUNT (AUTO) 681 K/uL (140-450); RED BLOOD CELL COUNT(AUTO) 2.62 MIL/uL (4.20-5.40); RED CELL DISTRIBUTION WIDTH 17.2 % (11.6-13.7); WHITE BLOOD COUNT (AUTO) 18.8 K/uL (4.8-10.8)
[2020-07-16 08:00] VITALS: BP 159/85
[2020-07-16 08:15] LABS: ANION GAP 13.4 (8-16); CARBON DIOXIDE 25.7 mmol/L (21-32); CHLORIDE 108 mmol/L (98-107); GLUCOSE 91 mg/dL (74-106); POTASSIUM 3.1 mmol/L (3.5-5.1); SODIUM SERUM 144 mmol/L (136-145); UREA NITROGEN, BLOOD 30 mg/dL (7-18)
--- NOTE | 2020-07-16 08:25 | NUR ---
PT SLIGHTLY LETHARGY REQUIRES TAPPING TO WAKE UP. PT OPENS EYES HOWEVER DOES NOT FOLLOW FULL COMMAND. LUNG SOUNDS DIMINISHED, ABD IS FLAT, SOFT AND NONTENDER WITH ACTIVE BS X 4. SKIN INTACT PT HAS INTACT AND PATENT IV ACCESS TO RIGHT UPPER ARM AND LEFT FOREARM. CURRENTLY GETTING FLUIDS TOLERATING IVPB WITH NO PROBLEMS. PT TENDS TO WANT TO LAY TO HER LEFT SIDE EVEN WHEN TURNED. PILLOWS APPLIED TO PREVENT TURNING, REMAINS ON SEIZURE PRECAUTION. NO SEIZURE ACTIVITY AT THIS TIME. PT HAS PUFFINESS TO ORBITAL AREA. NOTIFIED. PT HAS INTACT ACCESS TO LEFT CHEST FOR DIALYSIS. PT IS DUE TO DIALYSIS TODAY WILL F/U. SAFETY MEASURES IN PLACE. WILL CONTINUE WITH POC.
[2020-07-16] MEDS: MEROPENEM 500 MG in NACL 0.9% 50 ML IV SCH (08:31)
[2020-07-16] MEDS: EPOETIN ALFA 10,000 UNITS/ML VIAL SUBQ SCH (08:34)
[2020-07-16 09:27] LABS: CREATININE 7.8 mg/dL (0.6-1.3)
[2020-07-16] MEDS: levETIRAcetam 500 MG in NACL 0.9% 100 ML IV SCH ×2 (09:50→20:48)
--- NOTE | 2020-07-16 10:30 | NUR ---
FIRER LOCOMOTIVE CRANE ASSESSED PT AT BEDSIDE AND WAS NOTIFIED OF ELEVATED HR IN THE 140'S NO NEW ORDERS PT WILL HAVE MOMENTS OF FLUCTUATING TO 150'S BUT STAYS IN 140'S. PT HAS RECEIVED CALL FROM LAB REGARDING CREAT 7.8 AND BUN 30, MD NOTIFIED. ORDERED DIALYSIS TO BE DONE TODAY. PT RESTING IN BED GETTING IVF.
[2020-07-16 12:00] VITALS: BP 155/69
--- NOTE | 2020-07-16 12:15 | NUR ---
*ST: NOTES* Order received, chart reviewed. Cleared with RN, Shirley, for f/u PO trials with GROOMING SALON MANAGER as Pt was very restless and not attentive to task yesterday. Per RN, pt received Keppra and Ativan last night. Pt seen bedside, often sidelying on the L. Despite frequent repositioning on her back, Pt would try to lie on her side. Intermittent snoring observed. Compared to yesterday, Pt occasionally opened her eyes; however, Pt did not follow commands. Pt also did not track speaker. Noted extraneous biting and lingual movement. Oral care provided with defensiveness from Pt, raising her hands to block stimuli and moving her head away. Ice chips x3 trialed with extraneous manipulation and slight spillage of thin from R labial seal. Attempted tsp apple sauce x3 but Pt's extraneous lingual movement made it difficult to place bolus intraorally. Pt not appropriate for PO trials at this time 2/2 poor attention to task. Inconclusive bedside swallow evaluation as Pt is not fully participatory. Case d/w pt's RN. Plan for f/u swallow eval when Pt can sustain attention to task. -Caro Torre MA, CCC-GROOMING SALON MANAGER
--- NOTE | 2020-07-16 12:35 | NUR ---
PT CURRENTLY RECEIVING HEMODIALYSIS. BS AT THIS TIME 129 NO COVERAGE NEEDED. HEPARIN 10,000 GIVEN TO HEMODIALYSIS NURSE FOR ADMINISTRATION/FLUSH AFTER DIALYSES. NO SEIZURE LIKE ACTIVITY
--- NOTE | 2020-07-16 14:35 | NUR ---
PROVISION OF CARE PROVIDED PT HAS MOMENTS OF YELLING HOWEVER REDIRECTABLE. PT RECEIVING IVF, LESS PUFFINESS AROUND EYE AREA OBSERVED. Addendum: 07/16/20 at 1533 by Gertrudis Tran RN ACCORDING TO DIALYSIS NURSE TOOK OUT 2L AND HEPARIN WAS GIVE TO NURSE TO FLUSH BOTH PORTS.
--- NOTE | 2020-07-16 15:11 | NUR ---
*ST: Bedside Swallow Evaluation* Pt is 74 yo F ERICA from [facility] 07/13/2020 for AMS s/p seizure. Pt known to this VIDEO SYSTEMS ENGINEER from last admit, and seen 07/07/2020 with recommendation for Puree/Thin Liquids consistency. During last admit, Pt Tx for metabolic encephalopathy 2/2 UTI. 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 CTH 07/13 (-) acute; old lacunar infarct in the R basal ganglia. CXR 07/13 (-) acute. Cleared with RNShirley, for BDSE. Pt s/p HD. Noted less facial swelling. Pt restless but opens eyes and tracked speaker. Pt verbalized in clear vocal quality, Dont hurt me. I want water. Pt often repositioned herself to lie on her L side despite frequent verbal cuing and repositioning on her back. Per chart, Pt received MS/Thin Liquids at [facility] prior to admit. Ice chips x3, thin by straw x1, and apple sauce x3 given. Pt still had some extraneous lingual movement but better control of bolus, spillage of ice chips x3/3, fair straw sip thin x1, fair manipulation of apple sauce x3, no residue, slight delay swallow trigger, fair laryngeal excursion, strong cough 2/3 trials of apple sauce. Pt declined further POs, asking, Where is my daughter? POC d/w pt and pts RN. P: Rec continue NPO, oral care every 2-4 hrs VIDEO SYSTEMS ENGINEER f/u for ongoing swallow analysis -Caro Torre MA, [facility]-VIDEO SYSTEMS ENGINEER Addendum: 07/16/20 at [address] Amended: Links added.
--- NOTE | 2020-07-16 15:12 | NUR ---
07/16/20 RD INITIAL ASSESSMENT COMPLETED PLEASE REFER TO NUTRITION ASSESSMENT UNDER CARE ACTIVITY FOR ESTIMATED NUTRITIONAL NEEDS. 1. CONTINUE NPO 2. FOLLOW UP WITH STOCK ROLLER RECOMMENDATIONS 3. CONSIDER ENTERAL NUTRITION WITH NEPRO 1.8 @ 50 ML/HR X 24 HR. START AT 10 ML/HR, ADVANCE BY 10 ML/HR Q6H TO PREVENT REFEEDING SYNDROME. -THIS WILL PROVIDE 1728 KCAL AND 78 GM OF PROTEIN WHICH MEETS 100% OF ESTIMATED NEEDS. 4. RD TO FOLLOW-UP 2-3 DAYS, HIGH RISK PREETHI HENDRIX RD
[2020-07-16 16:00] VITALS: BP 137/76
--- NOTE | 2020-07-16 16:38 | NUR ---
CARDIZEM PRN GIVE AT 1539 DUE TO ELEVATED HR 157 PT TOLERATED WELL. CONTINUES TO FLUCTUATE. CURRENTLY 120'S PT IS CURRENTLY RESTING IN BED LAYING IN PREFERRED LEFT SIDE DESPITE SEVERAL ATTEMPTS TO TURN TO RIGHT. ALL NEEDS ARE MET AT THIS TIME.
--- NOTE | 2020-07-16 18:30 | NUR ---
PT IS RESTING IN BED LEFT LATERAL SIDE, CONTINUES TO RECEIVE FLUID IN NO DISTRESS. ALL NEED MET.
--- NOTE | 2020-07-16 19:43 | NUR ---
PT ENDORSED TO PM RN FOR CONTINUITY OF CARE. PT IS STABLE AT THIS TIME
--- NOTE | 2020-07-16 19:44 | NUR ---
RECEIVED BEDSIDE ENDORSEMENT FROM AM SHIFT RN. PT IS LYING IN BED, AWAKE, ON 4L NC, O2 SAT WNL, NO DISTRESS, NO SOB, IVF INFUSING, FALL PROTOCOL IN PLACE, PLAN OF CARE DISCUSSED, CALL LIGHT WITHIN REACH, WILL CONTINUE TO MONITOR.
[2020-07-16 20:00] VITALS: BP 108/68
--- NOTE | 2020-07-16 21:03 | NUR ---
PT IS AWAKE, NO DISTRESS, DUE MEDS GIVEN ORDERED, KEPT COMFORTABLE, CALL LIGHT WITHIN REACH.
[2020-07-17] VITALS: BP 127/72
[2020-07-17] MEDS: DILTIAZEM 25 MG/5 ML VIAL IVP PRN ×3 (00:30→20:09)
--- NOTE | 2020-07-17 00:33 | NUR ---
BP 143/76, HR 160. CARDIZEM IVP GIVEN PRN ORDERED, PT IS MOVING, NO DISTRESS, FLACC 0, CALL LIGHT WITHIN REACH, WILL MONITOR CLOSELY.
[2020-07-17] MEDS: DEXT 5% /NACL 0.9% 1,000 ML IV SCH ×2 (00:56→20:39)
--- NOTE | 2020-07-17 00:57 | NUR ---
IVF FINISHED, HANGED A NEW IVF. NO DISTRESS.
[2020-07-17 04:00] VITALS: BP 130/97
[2020-07-17] MEDS: BLOOD GLUCOSE MONITORING 1 DEV DEV FS SCH ×4 (06:37→20:29)
--- NOTE | 2020-07-17 06:37 | NUR ---
BLOOD SUGAR 82, NO COVERAGE NEEDED.
--- NOTE | 2020-07-17 07:54 | NUR ---
PT IS IN STABLE CONDITION. BEDSIDE ENDORSEMENT GIVEN TO AM SHIFT RN FOR CONTINUITY OF CARE.
[2020-07-17 08:00] VITALS: BP 92/53
[2020-07-17] MEDS: levETIRAcetam 500 MG in NACL 0.9% 100 ML IV SCH ×2 (09:00→20:30)
[2020-07-17 09:15] LABS: BASOPHILS # (AUTO) 0.1 K/uL (0.00-0.22); BASOPHILS % (AUTO) 0.9 % (0.0-2.0); EOSINOPHILS # (AUTO) 0.3 K/uL (0-0.4); EOSINOPHILS % (AUTO) 2.3 % (0.0-4.0); HEMATOCRIT 26.3 % (36-48); HEMOGLOBIN 8.2 g/dL (12.0-16.0); LYMPHOCYTES # (AUTO) 1.4 K/uL (2.5-16.5); LYMPHOCYTES % (AUTO) 10.1 % (20.5-51.1); MEAN CORPUSCULAR HEMOGLOBIN 30 pg (27-31); MEAN CORPUSCULAR HGB CONC 31 g/dL (33-37); MEAN CORPUSCULAR VOLUME 94.8 fL (80-94); MONOCYTES # (AUTO) 1.1 K/uL (0.8-1.0); MONOCYTES % (AUTO) 8.2 % (1.7-9.3); NEUTROPHILS # (AUTO) 10.5 K/uL (1.8-7.7); NEUTROPHILS % (AUTO) 78.5 % (42.2-75.2); PLATELET COUNT (AUTO) 602 K/uL (140-450); RED BLOOD CELL COUNT(AUTO) 2.78 MIL/uL (4.20-5.40); RED CELL DISTRIBUTION WIDTH 17.1 % (11.6-13.7); WHITE BLOOD COUNT (AUTO) 13.4 K/uL (4.8-10.8)
[2020-07-17 10:04] LABS: ANION GAP 12.8 (8-16); CHLORIDE 104 mmol/L (98-107); GLUCOSE 84 mg/dL (74-106); SODIUM SERUM 142 mmol/L (136-145); UREA NITROGEN, BLOOD 16 mg/dL (7-18)
[2020-07-17 10:35] LABS: CREATININE 5.2 mg/dL (0.6-1.3); POTASSIUM 2.8 mmol/L (3.5-5.1)
[2020-07-17] MEDS ORDERED: KCL 20 MEQ/WATER INJ PREMIX 100 ML IV SCH (11:30)
[2020-07-17 12:00] VITALS: BP 116/70
[2020-07-17] MEDS ORDERED: POTASSIUM CHLORIDE 10 MEQ TABER PO SCH (12:00)
--- NOTE | 2020-07-17 12:10 | NUR ---
SWALLOW THERAPY S: Pt WAS SEEN AT BEDSIDE. HOB NEAR 90 DEGREES FOR ASPIRATION PRECAUTIONS. RN, WILL, CLEARED Pt FOR SWALLOW TX. Pt WAS DEMENTED, RESPONSIVE, VERBAL AT TIMES, AND OVERALL COOPERATIVE. Pt REPORTED, "I'M HUNGRY." O: SWALLOW TX COMPLETED FOR PO TRIALS. A: Pt PRESENTED WITH FULL TOP DENTITION AND ENCENTULOUS BOTTOM. Pt PERSEVERATED ON CHEWING ON OWN TONGUE. Pt WAS ABLE TO TOLERATE ICE CHIPS, PUREE, AND THIN BY TSP AND STRAW, SINGLE SIPS, W/O OVERT S/S OF ASPIRATION OR PENETRATION NOTED. AP TRANSFER WAS TIMELY WITH SPONTANEOUS SWALLOW AND FULL LARYNGEAL ELEVATION AND EXCURSION. Pt HAD SOME DIFFICULTY WITH SIPPING FROM TSP W/O SPILLAGE D/T COORDINATION. MS GROUND TRIALS WITHHELD D/T STATE OF MENTATION IMPACTED BY DEMENTIA. P: RECOMMEND UPGRADE TO PO DIET OF PUREE AND THIN BY SINGLE SIPS FROM TSP OR STRAW OKAY. ASPIRATION PRECAUTIONS, ORAL CARE, AND FEEDER. CONTINUE ST FOR SWALLOW TX FOR ONGOING DIET ANALYSIS, SAFE SWALLOW STRATEGIES, AND Pt/CG EDUCATION. ANNALEE MALDONADO MS, [facility]ROOF SLATER Addendum: 07/17/20 at [address] Amended: Links added.
--- NOTE | 2020-07-17 13:18 | NUR ---
PT. WITH LOW CASPER SCALE AT RISK, CONTINUE TO FOLLOW PRESSURE INJURY PREVENTION INTERVENTIONS. -TURN AND REPOSITION PATIENT Q 2H -ASSESS AND MONITOR SKIN CONDITION DURING POSITION CHANGE -OFFLOAD BILATERAL HEELS BY PLACING PILLOWS UNDER CALVES AT ALL TIMES, UNLESS OTHERWISE CONTRAINDICATED -PRESSURE REDISTRIBUTION BY PLACING PILLOWS AND OFFLOADING SACRALCOCCYX -KEEP SKIN CLEAN AND DRY AT ALL TIMES.
[2020-07-17 16:00] VITALS: BP 118/72
[2020-07-17 20:00] VITALS: BP 112/82
--- NOTE | 2020-07-17 20:41 | NUR ---
PT IS AWAKE, NO DISTRESS, DUE MEDS GIVEN ORDERED, CALL LIGHT WITHIN REACH.
--- NOTE | 2020-07-17 22:14 | NUR ---
PT IS AWAKE, NO DISTRESS, DUE MEDS GIVEN ORDERED, CALL LIGHT WITHIN REACH. Addendum: 07/17/20 at 2251 by Fiona Crawford RN THE NOTES ABOVE IS A DUPLICATE.
--- NOTE | 2020-07-17 22:38 | NUR ---
INFORMED DR. WALLER RE: FLUCTUATING HR RANGING FROM 80-160, EVEN AFTER GIVING DILTIAZEM. ORDERED EKG. NOTED AND CARRIED OUT.
--- NOTE | 2020-07-17 23:00 | NUR ---
STAT EKG COMPLETED. RN AT BEDSIDE. PATIENT IS ON RA. NO DISTRESS SEEN. VITAL SIGNS STABLE. WILL CONT TO MONITOR
--- NOTE | 2020-07-17 23:00 | NUR ---
ASSISTED THE RT IN DOING THE EKG. INFORMED SUPERVISOR SUNGLASSES DR. WALLER OF THE EKG RESULT. ON CARDIOLOGY CONSULT. SHE SAID OK.
--- NOTE | 2020-07-17 23:10 | NUR ---
PT'S HR. IS WNL 70-80'S, PT SLEEPING. CALL LIGHT WITHIN REACH, WILL CONTINUE TO MONITOR.
--- NOTE | 2020-07-17 23:30 | NUR ---
PT IS SLEEPING, FLACC 0, NO DISTRESS.
[2020-07-18] VITALS: BP 132/73
--- NOTE | 2020-07-18 00:20 | NUR ---
V/S TAKE, BP 132/73 HR 85, 96% 98.3, 20. ASLEEP, RESPIRATION EVEN AND UNLABORED.
--- NOTE | 2020-07-18 01:42 | NUR ---
REMOTE INPATIENT CODER IS CLEANING THE PATIENT, PERINEAL CARE RENDERED, KEPT CLEAN ,DRY AND COMFORTABLE, NO DISTRESS, TOLERATED PROCEDURE WELL, LOW BED AND SAFETY MEASURES IN PLACE, CALL LIGHT WITHIN REACH.
[2020-07-18 04:00] VITALS: BP 129/76
[2020-07-18] MEDS: BLOOD GLUCOSE MONITORING 1 DEV DEV FS SCH ×4 (06:40→21:25)
--- NOTE | 2020-07-18 06:42 | NUR ---
IV SITE LFA INFILTRATED, REMOVED. NO BLOOD NOTED. CALL LIGHT WITHIN REACH.
--- NOTE | 2020-07-18 07:30 | NUR ---
PT IS IN STABLE CONDITION. ENDORSED TO AM SHIFT RN FOR CONTINUITY OF CARE AND THAT PT HAS NO IV LINE. SHE SAID OK AND WILL TRY TO RE-INSERT.
[2020-07-18 08:00] VITALS: BP 80/52
[2020-07-18] MEDS: VIT-B COMP/VIT-C/FOLIC ACID 1 TAB PO SCH (09:16)
[2020-07-18] MEDS: EPOETIN ALFA 10,000 UNITS/ML VIAL SUBQ SCH (09:17)
[2020-07-18 09:37] LABS: ANION GAP 12.7 (8-16); CARBON DIOXIDE 26.2 mmol/L (21-32); CHLORIDE 108 mmol/L (98-107); GLUCOSE 74 mg/dL (74-106); SODIUM SERUM 144 mmol/L (136-145); UREA NITROGEN, BLOOD 22 mg/dL (7-18)
[2020-07-18 09:40] LABS: CREATININE 6.9 mg/dL (0.6-1.3); POTASSIUM 2.9 mmol/L (3.5-5.1)
[2020-07-18 10:02] LABS: BASOPHILS # (AUTO) 0.1 K/uL (0.00-0.22); BASOPHILS % (AUTO) 1.2 % (0.0-2.0); EOSINOPHILS # (AUTO) 0.4 K/uL (0-0.4); EOSINOPHILS % (AUTO) 4.5 % (0.0-4.0); HEMATOCRIT 24.9 % (36-48); LYMPHOCYTES # (AUTO) 1.5 K/uL (2.5-16.5); LYMPHOCYTES % (AUTO) 16.6 % (20.5-51.1); MEAN CORPUSCULAR HEMOGLOBIN 30 pg (27-31); MEAN CORPUSCULAR HGB CONC 32 g/dL (33-37); MONOCYTES # (AUTO) 0.9 K/uL (0.8-1.0); MONOCYTES % (AUTO) 10.2 % (1.7-9.3); NEUTROPHILS % (AUTO) 67.5 % (42.2-75.2); PLATELET COUNT (AUTO) 578 K/uL (140-450); RED BLOOD CELL COUNT(AUTO) 2.65 MIL/uL (4.20-5.40); RED CELL DISTRIBUTION WIDTH 16.9 % (11.6-13.7); WHITE BLOOD COUNT (AUTO) 8.9 K/uL (4.8-10.8)
[2020-07-18 12:00] VITALS: BP 137/73
[2020-07-18] MEDS: levETIRAcetam 500 MG in NACL 0.9% 100 ML IV SCH ×2 (12:59→21:25)
[2020-07-18] MEDS ORDERED: MAG SULF 2000 MG/WATER PREMIX 50 ML IV PRN (14:20)
[2020-07-18] MEDS ORDERED: POTASSIUM CHLORIDE 10 MEQ TABER PO SCH (15:30)
[2020-07-18 16:00] VITALS: BP 135/96
--- NOTE | 2020-07-18 19:35 | NUR ---
RECEIVED PT ON BED, AAOX1, CONFUSED, NEEDS TO BE RE-ORIENTED FREQUENTLY, CALM AND COOPERATIVE, NO IV LINE AT THIS TIME, NO RESP DISTRESS, DENIES ANY PAIN, LEFT CHEST TUNNELED HD CATH IN PLACE WITH DRESSING DRY AND INTACT, SAFETY MEASURES IN PLACE WITH SIDE RAILS UP AND BED ALARM ON, MONITORED CLOSELY.
[2020-07-18 20:00] VITALS: BP 152/71
[2020-07-18] MEDS: DEXT 5% /NACL 0.9% 1,000 ML IV SCH (20:55)
--- NOTE | 2020-07-18 21:30 | NUR ---
NEW IV LINE INSERTED TO RT HAND GAUGE #24 WITH GOOD BLOOD RETURN, SITE COVERED WITH ROLLED GAUZE, BLOOD SUGAR CHECKED WITH 94 RESULT, DUE KEPPRA IVPB ADMINISTERED, ALL NEED ANTICIPATED, BED ALARM ON.
[2020-07-19] VITALS: BP 140/80
--- NOTE | 2020-07-19 | NUR ---
PT SLEEPING, EASILY AROUSABLE BUT CONFUSED, VITAL SIGNS STABLE, NO SIGNS OF PAIN OR SOB NOTED, IVF INFUSING WELL, CONTINUE TO MONITOR CLOSELY.
--- NOTE | 2020-07-19 02:43 | NUR ---
PT HAD EPISODE OF ST FROM 230 TO 241 WITH HR OF 162 TO 165 BPM, PT ASYMPTOMATIC, ABOUT TO GIVE PRN CARDIZEM BUT PT CONVERTED BACK TO SR ON TELE WITH 82 BPM, PT SLEEPING, NO SIGNS OF CHEST PAIN OR SOB, MONITORED CLOSELY.
[2020-07-19] MEDS: DEXT 5% /NACL 0.9% 1,000 ML IV SCH ×2 (03:59→18:50)
[2020-07-19 04:00] VITALS: BP 155/89
[2020-07-19] MEDS ORDERED: POTASSIUM CHLORIDE 10 MEQ TABER PO PRN (06:00)
--- NOTE | 2020-07-19 07:25 | NUR ---
PT AWAKE, CONFUSED, NO DISTRESS NOTED, REPORT GIVEN TO PRESLEY FOR CONTINUITY OF CARE.
[2020-07-19] MEDS: BLOOD GLUCOSE MONITORING 1 DEV DEV FS SCH ×4 (07:51→17:30)
[2020-07-19 08:00] VITALS: BP 161/80
--- NOTE | 2020-07-19 08:30 | NUR ---
NURSE REPORT AND ASSESSMENT REPORT OBTAINED FROM NIGHT NURSE DAVID AND THIS NURSE ASSUMED CARE OF PATIENT UNTIL 1930. PATIENT ALERT AND ORIENTED X 1. MED CRUSHED AND GIVEN IN APPLESAUCE. PATIENT REFUSED TO EAT PUREED DIET. AM BG 80. Addendum: 07/19/20 at 2038 by Agency 08 RN RN REPORT OBTAINED THIS AM AT 0730
[2020-07-19] MEDS: POTASSIUM CHLORIDE 10 MEQ TABER PO SCH (10:20)
[2020-07-19] MEDS: VIT-B COMP/VIT-C/FOLIC ACID 1 TAB PO SCH (10:20)
[2020-07-19] MEDS: levETIRAcetam 500 MG in NACL 0.9% 100 ML IV SCH ×2 (10:21→20:56)
[2020-07-19 12:00] VITALS: BP 168/96
[2020-07-19 16:36] VITALS: BP 145/96
--- NOTE | 2020-07-19 16:38 | NUR ---
07/19/20 RD FOLLOW UP COMPLETED PLEASE REFER TO NUTRITION PROGRESS NOTE UNDER CARE ACTIVITY FOR ESTIMATED NUTRITION NEEDS. RD RECOMMENDATIONS: 1. RECOMMEND CONTINUE PUREE DIET 2. ASSIST / ENCOURAGE PO INTAKE NEEDED 3. RD TO FOLLOW-UP 2-3 DAYS, HIGH RISK MIKE CHEEMA MBA, RD
[2020-07-19] MEDS: DILTIAZEM 25 MG/5 ML VIAL IVP PRN (16:48)
[2020-07-19] MEDS ORDERED: DILTIAZEM 25 MG/5 ML VIAL IVP ONE ×2 (18:35→18:50)
--- NOTE | 2020-07-19 18:55 | NUR ---
NURSE CARE PATIENT HR 158 BY [facility], AND RECHECKED BY THIS NURSE AND WAS ABOUT 159. GIVEN CARDIAZEM 5 MG AND RECHECKED IN 1 HR. STILL IN 150'S. DR TURPIN WAS NOTIFIED OF HR STILL ANUJA. FORECLOSURE CLERK SAYS IS V TACH. SENT A COPY OF THE TELE STRIP. JUNCTIONAL RHYTHM AND HE ORDERED 10 MG MORE OF CARDIZEM FOR ELEVATED HR. GIVEN AT 1836 AND RECHECKED AT 1855, HR 77. CONTINUE TO MONITOR PATIENT. IV D5NS AT 60 ML/HR AND CHARGING CORD WASN'T CONNECTED TO MACHINE. NIGHT NURSE WAS TOLD TO FIND CHARGING CORD.
--- NOTE | 2020-07-19 19:35 | NUR ---
RECEIVED PT AWAKE , MUMBLING , NID - O2 SAT WNL - RA , IV SITE INTACT AND PATENT . ON TELE MONITOR - SR . SAFETY MEASURES IN PLACE - BED ALARM ON . PLAN OF CARE DISCUSSED BUT POOR UNDERSTANDING DUE TO MENTAL STATUS . WILL CONT. TO MONITOR
[2020-07-19 20:00] VITALS: BP 150/75
[2020-07-20] VITALS: BP 121/59
--- NOTE | 2020-07-20 | NUR ---
MADE ROUNDS , NO S/SX OF ACUTE DISTRESS NOTED . ON TELE MONITOR - SR W/ PVC - BUT O2 SAT WNL - PT APPEARS COMFORTABLE RESTING ON BED .
[2020-07-20] MEDS: DEXT 5% /NACL 0.9% 1,000 ML IV SCH ×2 (01:34→22:55)
--- NOTE | 2020-07-20 02:00 | NUR ---
SLEEPING - ON TELE MONITOR - ON 80'S HR - CHEST RISE AND FALL EQUALLY - WILL CONT. TO MONITOR
[2020-07-20 04:00] VITALS: BP 122/77
--- NOTE | 2020-07-20 04:00 | NUR ---
O2 SAT WNL , AWAKE , ON TELE MONITOR , NO S/SX OF ACUTE DISTRESS
[2020-07-20] MEDS: BLOOD GLUCOSE MONITORING 1 DEV DEV FS SCH ×4 (06:36→20:40)
--- NOTE | 2020-07-20 07:12 | NUR ---
RECD REPORT FROM WORKDAY MANAGER NURSE. PT ON RA, D5/NS 60 ML/HR, R. HAND 24G, WHICH IS SECURED WITH GAUZE, PT WILL PULL OUT IF NOT COVERED. A/O x1. ANSWERS TO NAME, CAN FOLLOW SIMPLE COMMANDS, CALL LIGHT WITHIN REACH. BED ALARM ON. PT STABLE
--- NOTE | 2020-07-20 07:25 | NUR ---
ENDORSED TO AM SHIFT - PT - STABLE - AACU CHECK 73
[2020-07-20] MEDS: DILTIAZEM 25 MG/5 ML VIAL IVP PRN (08:31)
--- NOTE | 2020-07-20 08:39 | NUR ---
PT WITH SVT WITH HR AT 153. PER MD ORDER, ADMINISTERED 5MG CARDIZEM IV PUSH. AFTER MEDICATION HR LOWERED TO 144
[2020-07-20] MEDS: POTASSIUM CHLORIDE 10 MEQ TABER PO SCH (09:00)
[2020-07-20 10:48] LABS: ANION GAP 19.5 (8-16); CARBON DIOXIDE 22.7 mmol/L (21-32); CHLORIDE 107 mmol/L (98-107); GLUCOSE 81 mg/dL (74-106); POTASSIUM 3.2 mmol/L (3.5-5.1); SODIUM SERUM 146 mmol/L (136-145); UREA NITROGEN, BLOOD 19 mg/dL (7-18)
[2020-07-20 10:49] LABS: CREATININE 6.8 mg/dL (0.6-1.3)
[2020-07-20] MEDS: VIT-B COMP/VIT-C/FOLIC ACID 1 TAB PO SCH (11:07)
--- NOTE | 2020-07-20 11:07 | NUR ---
ADMINISTERED MEDS PRESCRIBED, MEDICATIONS WERE CRUSHED WITH CHOCOLATE PUDDING WHICH SHE SWALLOWED VERY SLOWLY, IT APPEARS SHE HAS HARD TIME SWALLOWING PUDDING. ATTEMPTED TO FEED PUREED ORANGE, AFTER ONE BITE, PT BEGAN COUGHING AND DID NOT SWALLOW FOOD IN MOUTH FOR A FEW MINUTES, DID NOT CONTINUE TO FEED TO AVOID ASPIRATION.
[2020-07-20] MEDS: levETIRAcetam 500 MG in NACL 0.9% 100 ML IV SCH ×2 (11:09→20:19)
--- NOTE | 2020-07-20 11:50 | NUR ---
*ST: TREATMENT* Follow-up swallow re-eval per MD order. Per GI consultation note, Pt has been having poor appetite with present Puree/Thin Liquids consistency diet and being placed on calorie count to determine if a G-tube is reasonable for overall nutrition. Cleared with RN, Teodora, for follow-up PO trials with LICENSING REGISTRATION EXAMINER. Pt seen bedside, alert, on room air, slow to respond. Often verbalizing in clear vocal quality, Dont do that. Stop that, whenever LICENSING REGISTRATION EXAMINER repositioned Pt for a closer to upright position. Compared to previous sessions, no lingual dyskinesia (i.e., tongue biting reflex) noted. MS pears by tsp x2 trialed with Pt engaging in munching pattern but no clinically significant breakdown. Pt engaged in this munching pattern for ~5-7 minutes with LICENSING REGISTRATION EXAMINER encouraging Pt to expel bolus should Pt not want it any more. Eventually, Pt expelled the boli. 2oz chocolate pudding by tsp given to Pt with pt stripping boli from tsp, no anterior spillage, no oral residue observed. No significant coughing nor throat clearing observed with pudding. ~2oz of vanilla nutritional shake by straw given to Pt. Pt sipped from straw, no anterior spillage, no oral residue observed. No significant coughing nor throat clearing observed with thin shake. Observations d/w pts RN. Pts mentation somewhat improving but still not having consistent attention to task. P: Rec continue present Puree/Thin Liquids consistency with feeding assistance for overall nutritional intake Nsg to monitor and notify LICENSING REGISTRATION EXAMINER of changes in status -Caro Torre MA, [facility]-LICENSING REGISTRATION EXAMINER Addendum: 07/20/20 at [address] Amended: Links added.
[2020-07-20 12:00] VITALS: BP 127/88
--- NOTE | 2020-07-20 12:00 | NUR ---
SPOKE TO GRANDJOSE HENSON, UPDATED STATUS OF PT. STATES HE WAS CALLED BY A "PHYSICIAN" AND WAS MADE AWARE THAT PT. MIGHT BE OBTAINING A GTUBE FOR FEEDING PURPOSE, CHART SHOWS 'S POSSIBLE RECOMMENDATION BUT NO ORDER AT THIS TIME. FRANSICO VERBALLY UNDERSTOOD
--- NOTE | 2020-07-20 13:00 | NUR ---
LUNCH WAS ATTEMPTED TO BE FED TO PT. CANNOT SWALLOW PUREED FOOD, HAS DIFFICULT TIME SWALLOWING FOOD BOLUS. PT BEGINS TO COUGH AND CANNOT SWALLOW FOOD IN MOUTH QUICKLY. WILL STOP ATTEMPTING TO FEED.
--- NOTE | 2020-07-20 15:00 | NUR ---
SPOKE TO TIFFANIE FIBER OPTIC SPLICER, INFORMED HER OF PT.'S INABILITY TO SWALLOW PUREED FOOD.
[2020-07-20 16:00] VITALS: BP 131/90
--- NOTE | 2020-07-20 16:55 | NUR ---
BLOOD GLUCOSE CHECKED, 90. NO COVERAGE NEEDED AT THIS TIME
--- NOTE | 2020-07-20 19:15 | NUR ---
ENDORSED PT TO NIGHT NURSE, PT STABLE.
--- NOTE | 2020-07-20 19:20 | NUR ---
RECEIVED PT IN STABLE CONDITION FROM AM NURSE. AWAKE,ALERT AND ORIENTED X2. ON TELE MONITOR. O2 SAT ON RA 97%. NO S/S OF ANY DISCOMFORT NOR ANY DISTRESS NOTED. HAS IVF INFUSING WELL ON THE RT HAND G#24. CLEAR AND PATENT. WITH LT SANDRA HD CATH IN PLACED . FREQ ROUNDS NEEDED. BED ON LOW POSITION. SIDE RAILS UP X2. CALL LIGHT WITHIN REACH. WILL CONTINUE TO MONITOR.
[2020-07-20 20:00] VITALS: BP 152/87
--- NOTE | 2020-07-20 21:00 | NUR ---
BLOOD SUGAR WAS CHECKED RESULT 86. ABLE TO GIVE SOME PUREE FOOD AND ICE CREAM. STILL WITH IVF INFUSING. WILL CONTINUE TO MONITOR.
[2020-07-21] VITALS: BP 164/109
--- NOTE | 2020-07-21 01:20 | NUR ---
PAGED FOR BP 164/109 THEN RECHECKED BP 171/94 HR- 98. WILL WAIT FOR CALL BACK.
[2020-07-21] MEDS: DILTIAZEM 25 MG/5 ML VIAL IVP PRN ×2 (03:46→04:50)
--- NOTE | 2020-07-21 03:46 | NUR ---
HR ON THE MONITOR 154/MIN - 155/MIN. BP 171/94 . CARDIZEM 5MG IVP GIVEN PER ORDER. WILL CONTINUE TO MONITOR AND REASSESS AFTER AN HOUR.
[2020-07-21 04:00] VITALS: BP 161/93
--- NOTE | 2020-07-21 04:46 | NUR ---
REASSESSMENT DONE AFTER THE CARDIZEM IVP HR - 89 ,BP 161/93. WILL CONTINUE TO MONITOR.
[2020-07-21] MEDS: BLOOD GLUCOSE MONITORING 1 DEV DEV FS SCH ×4 (06:24→20:06)
--- NOTE | 2020-07-21 07:25 | NUR ---
ENDORSED PT IN STABLE CONDITION TO AM NURSE.
--- NOTE | 2020-07-21 07:27 | NUR ---
RECEIVED REPORT FROM NIGHT NURSE PATIENT IS AWAKE , ON ROOM AIR, FEEDER, SKIN INTACT, FOR HEMODIALYSIS TODAY AT 900 AM WITH RIGHT IJ DIALYSIS PORT. IV SITES INTACT ON RIGHT HAND. SAFETY MEASURES IN PLACE AND CALL LIGHT WITHIN REACH.
[2020-07-21 08:00] VITALS: BP 185/154
[2020-07-21 08:37] LABS: BASOPHILS # (AUTO) 0.2 K/uL (0.00-0.22); BASOPHILS % (AUTO) 1.3 % (0.0-2.0); EOSINOPHILS # (AUTO) 0.4 K/uL (0-0.4); EOSINOPHILS % (AUTO) 3.2 % (0.0-4.0); HEMATOCRIT 28.5 % (36-48); HEMOGLOBIN 8.7 g/dL (12.0-16.0); LYMPHOCYTES # (AUTO) 1.7 K/uL (2.5-16.5); LYMPHOCYTES % (AUTO) 13.5 % (20.5-51.1); MEAN CORPUSCULAR HEMOGLOBIN 29 pg (27-31); MEAN CORPUSCULAR HGB CONC 30 g/dL (33-37); MEAN CORPUSCULAR VOLUME 95.9 fL (80-94); MONOCYTES # (AUTO) 0.8 K/uL (0.8-1.0); MONOCYTES % (AUTO) 6.4 % (1.7-9.3); NEUTROPHILS # (AUTO) 9.8 K/uL (1.8-7.7); NEUTROPHILS % (AUTO) 75.6 % (42.2-75.2); PLATELET COUNT (AUTO) 692 K/uL (140-450); RED BLOOD CELL COUNT(AUTO) 2.98 MIL/uL (4.20-5.40); RED CELL DISTRIBUTION WIDTH 18.2 % (11.6-13.7); WHITE BLOOD COUNT (AUTO) 12.9 K/uL (4.8-10.8)
[2020-07-21] MEDS: levETIRAcetam 500 MG in NACL 0.9% 100 ML IV SCH ×2 (08:42→20:06)
[2020-07-21] MEDS: VIT-B COMP/VIT-C/FOLIC ACID 1 TAB PO SCH (08:42)
[2020-07-21] MEDS: POTASSIUM CHLORIDE 20% 40 MEQ/15 ML UDC PO SCH (08:43)
[2020-07-21 08:49] LABS: ANION GAP 16.4 (8-16); CARBON DIOXIDE 24.1 mmol/L (21-32); CHLORIDE 110 mmol/L (98-107); GLUCOSE 100 mg/dL (74-106); POTASSIUM 3.5 mmol/L (3.5-5.1); SODIUM SERUM 147 mmol/L (136-145); UREA NITROGEN, BLOOD 22 mg/dL (7-18)
--- NOTE | 2020-07-21 08:57 | NUR ---
MEDICATION DUE GIVEN ABLE TO SWALLOW MEDICATION, NO DISTRESS NOTED PATIENT FOR DIALYSIS TODAY.
[2020-07-21 09:16] LABS: PHOSPHORUS 3.3 mg/dL (2.5-4.9)
[2020-07-21 10:47] LABS: CREATININE 7.8 mg/dL (0.6-1.3)
--- NOTE | 2020-07-21 11:43 | NUR ---
BLOOD SUGAR AT 111 MG/DL NO INSULIN COVERAGE.
[2020-07-21 12:00] VITALS: BP 187/93
--- NOTE | 2020-07-21 13:50 | NUR ---
CONTRACTING OFFICER MICHELLE CALLED FOR PATIENT GTUBE INSERTION AND INFORMED DR SORIANO.
[2020-07-21] MEDS ORDERED: cloNIDine-TTS2 0.2 MG/24 HR 1 EA PATCH TD SCH (14:00)
--- NOTE | 2020-07-21 14:12 | NUR ---
CALLED DR SORIANO TO INFORM HIM ABOUT THE PATIENT GTUBE PLACEMENT. WILL CALL FAMILY TO GET CONSENT.
--- NOTE | 2020-07-21 14:47 | NUR ---
CONSENT GIVEN BY JOSE HENSON THROUGH TELEPHONE CONSENT,
--- NOTE | 2020-07-21 14:49 | NUR ---
DR SORIANO CALLED GAVE ORDERS TO STOP HEPARIN FOR NOW AND NPO AFTER MIDNIGHT FOR GT PLACEMENT TOMORROW AT NOON TIME.
--- NOTE | 2020-07-21 15:08 | NUR ---
07/21/20 RD FOLLOW UP COMPLETED PLEASE REFER TO NUTRITION ASSESSMENT UNDER CARE ACTIVITY FOR ESTIMATED NUTRITIONAL NEEDS. 1. RECOMMEND ENTERAL NUTRITION IF ALIGNS WITH PATIENTS FAMILYS WISHES 2. CONSIDER NEPRO 1.8 @ 40 ML/HR X 24 HR. START AT 10 ML/HR AND INCREASE BY 20 ML/HR Q4H. -THIS WILL PROVIDE 1728 KCAL AND 78 GM OF PROTEIN AT GOAL. 3. RECOMMEND FREE WATER FLUSH OF [address] TO FOLLOW-UP 2-3 DAYS, HIGH RISK PREETHI HENDRIX RD
[2020-07-21] MEDS ORDERED: WATER STERILE 10 ML MC ONE (15:47)
[2020-07-21 16:00] VITALS: BP 171/88
[2020-07-21] MEDS ORDERED: ALTEPLASE 2 MG VIAL MC SCH (16:00)
--- NOTE | 2020-07-21 16:11 | NUR ---
HEMODIALYSIS DONE WITH 1.6 L OUTPUT AND CATHFLO ACTIVASE 4MG GIVEN BY DIALYSIS NURSE.
--- NOTE | 2020-07-21 16:30 | NUR ---
BLOOD SUGAR LEVEL AT 113 MG/DL NO INSULIN COVERAGE.
[2020-07-21] MEDS: EPOETIN ALFA 10,000 UNITS/ML VIAL SUBQ SCH (16:52)
[2020-07-21] MEDS: DEXT 5% /NACL 0.9% 1,000 ML IV SCH (16:52)
--- NOTE | 2020-07-21 17:00 | NUR ---
CLONODINE PATCH ON THE LEFT CHEST BP 171/88 CT 101.
--- NOTE | 2020-07-21 19:08 | NUR ---
ENDORSED TO NIGHT NURSE FOR CONTINUITY OF CARE.
--- NOTE | 2020-07-21 19:10 | NUR ---
RECEIVED BEDSIDE REPORT FROM DAY SHIFT NURSE FOR CONTINUITY OF CARE. PT IS AWAKE, A&OX1. PT IS ON RA WITH BREATHING UNLABORED. PT IS ST ON TELE MONITORING, HR 110. PT IS NPO AFTER MIDNIGHT FOR G TUBE PLACEMENT TOMORROW AT NOON. WILL HOLD HEPARIN PER SURGEON'S REQUEST. SKIN IS WARM, DRY, AND INTACT. IV IS IN THE RIGHT HAND 24 GAUGE RUNNING D5 NS AT 60 ML PER HOUR PER ORDER. PT HAD HD TODAY AND 1.6 L WAS REMOVED PER DAY SHIFT NURSE. PT IS STABLE AT THIS TIME. NO DISTRESS NOTED. PLAN OF CARE DISCUSSED.
[2020-07-21 20:00] VITALS: BP 168/90
--- NOTE | 2020-07-21 20:10 | NUR ---
HEPARIN WAS HELD PER DR. SORIANO ORDER PER DAY SHIFT NURSE FOR G TUBE PLACEMENT PROCEDURE TOMORROW. AND REASSESSMENT OF CARDIZEM WAS NOT CHARTED PER DAY SHIFT NURSE.
--- NOTE | 2020-07-21 21:30 | NUR ---
PT IS ASLEEP IN SEMI FOWLERS POSITION. NO DISTRESS NOTED. BREATHING IS UNLABORED ON RA. BLANKETS WERE PROVIDED FOR COMFORT. PT WAS GIVEN APPLE JUICE AND PUDDING FOR BS OF 94.
--- NOTE | 2020-07-21 22:00 | NUR ---
PT WAS REPOSITIONED. PILLOWS WERE USED TO PAD BONY REGIONS. BLANKETS WERE PROVIDED FOR COMFORT. NO DISTRESS AT THIS TIME.
--- NOTE | 2020-07-21 23:00 | NUR ---
SPOKE TO DAUGHTER ON THE PHONE AND UPDATED HER ON THE PLAN OF CARE. QUESTIONS WERE ANSWERED AND PROVIDED DAUGHTER WITH PATIENTS CURRENT CONDITION.
--- NOTE | 2020-07-21 23:30 | NUR ---
PT IS ASLEEP AND NO DISTRESS NOTED. PT DOES NOT APPEAR TO BE IN PAIN. IV IS INFUSING ORDERED. BED IS IN THE LOWEST POSITION AND CALL LIGHT IS WITHIN REACH.
[2020-07-22] VITALS: BP_SYST 143; BP_SYST 156; BP_DIAS 111; BP_DIAS 93
--- NOTE | 2020-07-22 00:02 | NUR ---
IV WAS INFILTRATED ON THE RIGHT HAND. NEW IV WAS PLACED IN THE LEFT FOREARM 22 GAUGE. NO HISTORY OF AV SHUNT. IV IS PATENT AND FLUSHING.
--- NOTE | 2020-07-22 02:00 | NUR ---
IV IS PATENT AND FLUSHING. PT IS ASLEEP. BREATHING IS UNLABORED. PT IS STABLE AT THIS TIME.
--- NOTE | 2020-07-22 03:49 | NUR ---
ROUNDED ON PT. SHE IS SLEEPING IN SEMI FOWLERS POSITION. PT WAS CHANGED AND LINENS WERE CHANGED WELL. PT WAS REPOSITIONED. PT TOLERATING CHANGING WELL.
[2020-07-22 04:00] VITALS: BP 116/67
[2020-07-22] MEDS: DILTIAZEM 25 MG/5 ML VIAL IVP PRN ×2 (04:55→23:20)
--- NOTE | 2020-07-22 04:56 | NUR ---
CARDIZEM WAS GIVEN FOR HR OF 170 AND BP OF 132/79. WILL CONTINUE TO MONITOR BP AND HR.
--- NOTE | 2020-07-22 06:30 | NUR ---
BS READING IS 112. PT DOES NOT NEED INSULIN COVERAGE. PT IS ALSO NPO FOR PROCEDURE TODAY AT NOON.
--- NOTE | 2020-07-22 06:39 | NUR ---
TEXTED DR. PACK ABOUT HR OF 165 AND BP OF 123/71. ALSO INFORMED HIM THAT CARDIZEM WAS GIVEN OVER AN HOUR AGO. WILL WAIT FOR A RESPONSE BACK.
--- NOTE | 2020-07-22 06:40 | NUR ---
DR PACK ORDERED A STAT EKG. CONFIRMED WITH HIM THAT CARDIOLOGY IS ON BOARD. AND ALSO CONFIRMED THAT THE PT IS RECEIVING BP MED OF CLONIDINE PATCH. WILL INFORM HIM OF THE RESULTS WHEN THE EKG IS DONE.
[2020-07-22] MEDS: BLOOD GLUCOSE MONITORING 1 DEV DEV FS SCH ×4 (06:50→20:46)
--- NOTE | 2020-07-22 07:05 | NUR ---
RT IS AT THE BEDSIDE TO TAKE THE EKG. WILL REPORT RESULTS TO DR. PACK.
--- NOTE | 2020-07-22 07:18 | NUR ---
INFORMED DOCTOR OF RESULTS OF EKG. SVT W/ LEFT ANTERIOR FASCICULAR BLOCK, HR 170.
--- NOTE | 2020-07-22 07:35 | NUR ---
RECEIVED ENDORSEMENT FROM COMMERCIAL LOAN ASSISTANT, ASLEEP ON BED, BREATHING SPONTANEOUSLY AT ROOM AIR,NOT IN DISTRESS NOTED, WITH ONGOING IV FLUID WITH D5 NS AT 30ML/HOUR INFUSING WELL AT LEFT FOREARM G22 IV CANNULA NOTED. SAFETY MEASURES IN PLACE AND CONTINUE MONITOR.
--- NOTE | 2020-07-22 07:51 | NUR ---
SPOKE TO DR. PACK ON THE PHONE AND HE ORDERED METOPROLOL IV STAT FOR HR OF 170. ENDORSED TO DAY SHIFT NURSE. ENDORSED PT TO DAY SHIFT NURSE. NO DISTRESS NOTED. PLAN OF CARE WAS DISCUSSED.
[2020-07-22 08:00] VITALS: BP 141/97
[2020-07-22] MEDS ORDERED: METOPROLOL 5 MG/5 ML VIAL IV SCH (08:10)
--- NOTE | 2020-07-22 08:18 | NUR ---
APPARENTLY ECG SHOWS SVT, VITAL SIGNS TAKEN BP-141/97, HR- 166, METOPROLOL 5MG IV PUSH GIVEN SLOWLY FOR 2MINS. PATIENT IS AWAKE, RESPOND TO VERBAL COMMAND, NOT IN DISTRESS NOTED.
--- NOTE | 2020-07-22 08:34 | NUR ---
HR IN MAP MAKER- 143BPM NOTED, CONTINUE TO MONITOR.
[2020-07-22 08:36] LABS: BASOPHILS # (AUTO) 0.1 K/uL (0.00-0.22); EOSINOPHILS # (AUTO) 0.2 K/uL (0-0.4); EOSINOPHILS % (AUTO) 1.5 % (0.0-4.0); HEMATOCRIT 27.9 % (36-48); HEMOGLOBIN 8.7 g/dL (12.0-16.0); LYMPHOCYTES # (AUTO) 1.1 K/uL (2.5-16.5); LYMPHOCYTES % (AUTO) 7.6 % (20.5-51.1); MEAN CORPUSCULAR HEMOGLOBIN 29 pg (27-31); MEAN CORPUSCULAR HGB CONC 31 g/dL (33-37); MEAN CORPUSCULAR VOLUME 93.7 fL (80-94); MONOCYTES # (AUTO) 1.1 K/uL (0.8-1.0); MONOCYTES % (AUTO) 7.6 % (1.7-9.3); NEUTROPHILS # (AUTO) 11.8 K/uL (1.8-7.7); NEUTROPHILS % (AUTO) 82.3 % (42.2-75.2); PLATELET COUNT (AUTO) 527 K/uL (140-450); RED BLOOD CELL COUNT(AUTO) 2.97 MIL/uL (4.20-5.40); RED CELL DISTRIBUTION WIDTH 17.8 % (11.6-13.7); WHITE BLOOD COUNT (AUTO) 14.4 K/uL (4.8-10.8)
[2020-07-22] MEDS: POTASSIUM CHLORIDE 20% 40 MEQ/15 ML UDC PO SCH (09:00)
[2020-07-22] MEDS: DILTIAZEM 30 MG TAB PO SCH ×3 (09:00→17:21)
[2020-07-22] MEDS: VIT-B COMP/VIT-C/FOLIC ACID 1 TAB PO SCH (09:00)
[2020-07-22 09:02] LABS: ANION GAP 14.4 (8-16); CARBON DIOXIDE 26.1 mmol/L (21-32); CHLORIDE 105 mmol/L (98-107); GLUCOSE 89 mg/dL (74-106); POTASSIUM 3.5 mmol/L (3.5-5.1); SODIUM SERUM 142 mmol/L (136-145); UREA NITROGEN, BLOOD 13 mg/dL (7-18)
[2020-07-22 09:22] LABS: MAGNESIUM 1.6 mg/dL (1.8-2.4); PHOSPHORUS 3.1 mg/dL (2.5-4.9)
--- NOTE | 2020-07-22 09:29 | NUR ---
DR. GRIGSBY, CARDIOLOGY MADE ROUNDS AND ORDERED TO TO DILTIAZEM 10MG IV STAT ORDER INSTEAD OF GIVING DUE DILTIAZEM 30MG PO, CARRIED OUT.
[2020-07-22 09:31] LABS: CREATININE 5.1 mg/dL (0.6-1.3)
[2020-07-22] MEDS ORDERED: DILTIAZEM 25 MG/5 ML VIAL IVP SCH (10:00)
--- NOTE | 2020-07-22 10:01 | NUR ---
VITAL SIGNS TAKEN AND RECORDED, HR STILL ELEVATED-151, ECG SHOWS SVT. DILTIAZEM 10MG IV PUSH SLOWLY GIVEN, CONTINUE MONITOR.
[2020-07-22] MEDS: levETIRAcetam 500 MG in NACL 0.9% 100 ML IV SCH ×2 (10:12→20:41)
[2020-07-22 12:00] VITALS: BP 143/79
--- NOTE | 2020-07-22 12:02 | NUR ---
GLUCOSE-74, NO INSULIN COVERAGE, STILL WITH ONGOING D5 0.9% NS 30ML/HOUR INFUSING WELL AT LEFT FA.
--- NOTE | 2020-07-22 12:30 | NUR ---
TO OR PICKED BY OR NURSE, APPARENTLY THE CONSENT WRITTEN IN SURGERY CONSENT, SON CONTACTED AND OBTAINED A NEW CONSENT FOR PEG INSERTION AND AGREED, VERBALIZED UNDERSTANDING AND CONSENT OBTAINED. DR. SORIANO WILL SIGN IN OR PER OR STAFF ABDOULAYE.
[2020-07-22] MEDS ORDERED: diphenhydrAMINE 50 MG/ML VIAL ONE (12:43)
[2020-07-22] MEDS ORDERED: fentaNYL citrate 0.05 MG/ML VIAL ONE (12:44)
[2020-07-22] MEDS ORDERED: MIDAZOLAM 2 MG/2 ML VIAL ONE (12:44)
[2020-07-22] MEDS ORDERED: MAGNESIUM HYDROXIDE 2400 MG/30 ML UDC PO PRN (13:40)
[2020-07-22] MEDS ORDERED: METOCLOPRAMIDE 10 MG/10 ML SYRP UDC GT PRN (13:40)
--- NOTE | 2020-07-22 13:50 | NUR ---
BACK TO ROOM FROM OR PER BED, STILL ASLEEP AND RESPOND TO SLIGHT GLABELLAR TAP NOTED, VITAL SIGNS TAKEN AND RECORDED, NOT IN DISTRESS. STATUS POST G-TUBE INSERTION, BINDER IN PLACE AND READY TO USE PER DR. SORIANO.
[2020-07-22] MEDS ORDERED: fentaNYL citrate 0.05 MG/ML VIAL IVP ONE (14:30)
[2020-07-22] MEDS ORDERED: MIDAZOLAM 2 MG/2 ML VIAL IVP ONE (14:30)
[2020-07-22 16:00] VITALS: BP 139/85
--- NOTE | 2020-07-22 16:04 | NUR ---
GLUCERNA STILL NOT AVAILABLE , FNS CONTACTED TO FOLLOW UP THE FEEDING
[2020-07-22] MEDS: DEXT 5% /NACL 0.9% 1,000 ML IV SCH (16:07)
--- NOTE | 2020-07-22 17:01 | NUR ---
FEEDING PUMP IS NOT WORKING, RANGE AIDE INFORMED, APPARENTLY NO AVAILABLE FEEDING PUMP. ACCORDING TO HER, DO MANUAL FEEDING BAG
--- NOTE | 2020-07-22 18:05 | NUR ---
GLUCERNA AT 50ML/HOUR STARTED VIA MANUAL BAG.
--- NOTE | 2020-07-22 18:10 | NUR ---
FOR HEMODIALYSIS TOMORROW, HD NURSE AT THE UNIT MADE AWARE.
--- NOTE | 2020-07-22 18:41 | NUR ---
P.T. NOTES D/C FROM P.T. AFTER TX, ENDORSED TO NURSING; O2 SAT ROOM AIR=91%, 2L=96%
--- NOTE | 2020-07-22 19:04 | NUR ---
ENDORSED TO URIEL SHIFT IN STABLE CONDITION FOR CONTINUITY OF CARE
--- NOTE | 2020-07-22 19:05 | NUR ---
RECEIVED BEDSIDE REPORT FROM DAY SHIFT NURSE FOR CONTINUITY OF CARE. PT IS AWAKE, A&OX0. LAYING IN SEMI FOWLERS POSITION. BREATHING IS UNLABORED ON RA. ON TELE MONITORING. G TUBE IN PLACE ON THE RIGHT SIDE OF THE ABDOMEN. SKIN IS WARM AND DRY. NO WOUNDS PRESENT BESIDES SURGICAL INCISION FOR G TUBE PLACEMENT. G TUBE FEEDING IS RUNNING, GLUCERNA 1.2 AT 50 ML PER HOUR PER ORDER. IV IS IN THE LEFT FOREARM 22 GAUGE RUNNING D5NS AT 30 ML PER HOUR PER ORDER. LEFT UPPER CHEST IJ IN PLACE FOR DIALYSIS. HD TOMORROW, DIALYSIS NURSE AWARE PER DAY SHIFT NURSE. PLAN OF CARE DISCUSSED. PT IS STABLE AT THIS TIME.
[2020-07-22 20:00] VITALS: BP 140/78
--- NOTE | 2020-07-22 20:04 | NUR ---
SPOKE TO SON ON THE PHONE. UPDATED HIM ON THE CONDITION OF THE PATIENT AND PLAN OF CARE. ANSWERED ALL QUESTIONS.
--- NOTE | 2020-07-22 21:30 | NUR ---
PT WAS CHANGED AND REPOSITIONED. PT VOIDED IN DIAPER. FEEDING RESIDUAL IS LESS THAN 10 ML IN THE G TUBE. PT IS TOLERATING IT WELL. IV FLUIDS ARE INFUSING ORDERED.
--- NOTE | 2020-07-22 23:14 | NUR ---
SPOKE TO [facility] AND THEY VERIFIED THAT MAGNESIUM SULFATE IS COMPATIBLE WITH THIS PATIENT'S FLUIDS D5 HALF NS.
--- NOTE | 2020-07-22 23:21 | NUR ---
cardizem was given for hr of 165, bp 140/117. will reassess both hr and bp. magnesium sulfate rider given for magnesium level of 1.6. will assess morning labs.
[2020-07-23] VITALS: BP 155/67
--- NOTE | 2020-07-23 01:30 | NUR ---
PT IS ASLEEP IN SEMI FOWLERS POSITION. BREATHING IS UNLABORED AND NO PAIN NOTED. G TUBE FEEDING IS INFUSING. RESIDUAL IS LESS THAN 5 ML. IV FLUIDS ARE INFUSING. BED IS IN THE LOWEST POSITION AND CALL LIGHT IS WITHIN REACH.
--- NOTE | 2020-07-23 03:18 | NUR ---
ROUNDED ON PT. SHE ASLEEP. SR ON TELE MONITORING. NO DISTRESS NOTED. PT IS STABLE.
[2020-07-23 04:00] VITALS: BP 112/62
[2020-07-23] MEDS: BLOOD GLUCOSE MONITORING 1 DEV DEV FS SCH ×4 (05:50→21:00)
--- NOTE | 2020-07-23 05:50 | NUR ---
PT'S BS READING IS 135. NO INSULIN COVERAGE NEEDED. PT IS STABLE AT THIS TIME.
[2020-07-23] MEDS: DILTIAZEM 25 MG/5 ML VIAL IVP PRN (06:24)
--- NOTE | 2020-07-23 06:24 | NUR ---
PT WAS GIVEN CARDIZEM IVP 5 MG FOR HR OF 165 AND BP OF 141/92. WILL REASSESS BP AND HR.
--- NOTE | 2020-07-23 07:05 | NUR ---
ENDORSED PT TO DAY SHIFT NURSE FOR CONTINUITY OF CARE. PT IS STABLE AT THIS TIME. BREATHING IS UNLABORED. G TUBE FEEDING HAS BEEN PAUSED FOR AN HOUR DUE TO RESIDUAL OF 120 ML. DAY SHIFT RN AWARE. IV FLUIDS ARE INFUSING AND IV IS PATENT. PLAN OF CARE DISCUSSED.
--- NOTE | 2020-07-23 07:06 | NUR ---
RECEIVED ENDORSEMENT FROM THERMOCOUPLE TESTER, ASLEEP ON BED, BREATHING SPONTANEOUSLY AT ROOM AIR, NOT IN DISTRESS, WITH ONGOING IV FLUID WITH D5 0.9%NS AT 30ML/HOUR INFUSING AT LEFT FOREARM, G22 IV CANNULA NOTED. WITH LEFT IJ TUNNELED CATHETER, ACCESS FOR HEMODIALYSIS NOTED. WITH TUBE FEEDING ON HOLD, GLUCERNA 1.2 AT 50ML/HOUR +WATER 100ML/4HOUR VIA G-TUBE. SAFETY MEASURES IN PLACE AND CONTINUE MONITOR.
[2020-07-23 08:00] VITALS: BP 124/86
[2020-07-23 08:48] LABS: BASOPHILS # (AUTO) 0.1 K/uL (0.00-0.22); BASOPHILS % (AUTO) 0.6 % (0.0-2.0); EOSINOPHILS % (AUTO) 0.2 % (0.0-4.0); LYMPHOCYTES # (AUTO) 0.8 K/uL (2.5-16.5); LYMPHOCYTES % (AUTO) 5.6 % (20.5-51.1); MEAN CORPUSCULAR HEMOGLOBIN 29 pg (27-31); MEAN CORPUSCULAR HGB CONC 31 g/dL (33-37); MONOCYTES # (AUTO) 0.9 K/uL (0.8-1.0); MONOCYTES % (AUTO) 6.4 % (1.7-9.3); NEUTROPHILS # (AUTO) 12.2 K/uL (1.8-7.7); NEUTROPHILS % (AUTO) 87.2 % (42.2-75.2); PLATELET COUNT (AUTO) 441 K/uL (140-450); RED BLOOD CELL COUNT(AUTO) 2.79 MIL/uL (4.20-5.40); RED CELL DISTRIBUTION WIDTH 18.2 % (11.6-13.7)
[2020-07-23 08:55] LABS: ANION GAP 15.4 (8-16); CARBON DIOXIDE 24.5 mmol/L (21-32); CHLORIDE 108 mmol/L (98-107); GLUCOSE 137 mg/dL (74-106); POTASSIUM 3.9 mmol/L (3.5-5.1); SODIUM SERUM 144 mmol/L (136-145); UREA NITROGEN, BLOOD 24 mg/dL (7-18)
[2020-07-23] MEDS: VIT-B COMP/VIT-C/FOLIC ACID 1 TAB PO SCH (08:58)
[2020-07-23] MEDS: DILTIAZEM 30 MG TAB PO SCH ×3 (08:58→16:36)
[2020-07-23] MEDS: POTASSIUM CHLORIDE 20% 40 MEQ/15 ML UDC PO SCH (09:01)
[2020-07-23] MEDS: levETIRAcetam 500 MG in NACL 0.9% 100 ML IV SCH ×2 (09:01→21:59)
[2020-07-23] MEDS: ACETAMINOPHEN 325 MG TAB PO PRN ×2 (09:08→15:05)
--- NOTE | 2020-07-23 09:08 | NUR ---
FACIAL GRIMACED NOTED, ACETAMINOPHEN 650MG ORDERED PRN AND DUE MEDICATION GIVEN. G-TUBE CHECKED, 110 ML RESIDUAL NOTED, FEEDING STILL HOLD. HR-160BPM DUE DILTIAZEM 30MG TAB VIA G-TUBE GIVEN.CONTINUE MONITOR
[2020-07-23] MEDS: EPOETIN ALFA 10,000 UNITS/ML VIAL SUBQ SCH (09:09)
[2020-07-23 09:47] LABS: CREATININE 6.6 mg/dL (0.6-1.3)
--- NOTE | 2020-07-23 10:05 | NUR ---
G-TUBE RESIDUAL STILL MORE THAN 100ML, FEEDING ON HOLD
--- NOTE | 2020-07-23 11:50 | NUR ---
GLUCOSE-122, NO INSULIN COVERAGE
[2020-07-23 12:00] VITALS: BP 136/67
--- NOTE | 2020-07-23 12:04 | NUR ---
G-TUBE RESIDUAL CHECKED-30ML, FEEDING RESUMED WITH GLUCERNA 50ML/HOUR+WATER 100ML/4HOUR.
[2020-07-23 14:24] LABS: MAGNESIUM 2.3 mg/dL (1.8-2.4); PHOSPHORUS 3.8 mg/dL (2.5-4.9)
[2020-07-23] MEDS: DEXT 5% /NACL 0.9% 1,000 ML IV SCH (15:05)
--- NOTE | 2020-07-23 15:05 | NUR ---
FACIAL GRIMACE AND MOANING NOTED, TYLENOL 650MG TAB ORDERED PRN FOR PAIN GIVEN, KEPT COMFORTABLE TO BED
[2020-07-23 16:00] VITALS: BP 132/64
--- NOTE | 2020-07-23 16:34 | NUR ---
GLUCOSE-142, NO INSULIN COVERAGE. MOUTH IS DRY,ORAL CARE RENDERED.
--- NOTE | 2020-07-23 16:37 | NUR ---
DUE DILTIAZEM 30MG TAB TID NON ADMINISTER, HR-57 BPM
[2020-07-23] MEDS ORDERED: METOPROLOL 5 MG/5 ML VIAL IV PRN (17:10)
[2020-07-23] MEDS ORDERED: DILTIAZEM 25 MG/5 ML VIAL IVP PRN (17:10)
--- NOTE | 2020-07-23 17:32 | NUR ---
CHUX FULL OF URINE, AFTERNOON CARE DONE, REPOSITIONED TO RIGHT SIDE LYING
--- NOTE | 2020-07-23 18:10 | NUR ---
HEMODIALYSIS NURSE AT BEDSIDE, APPARENTLY FEEDING HOLD
--- NOTE | 2020-07-23 18:15 | NUR ---
APPARENTLY CRYING AND SQUIRMING, TYLENOL 650MG GIVEN AT 1505, DR. HOYT INFORMED THRU TEXT MESSAGES
--- NOTE | 2020-07-23 19:00 | NUR ---
RECEIVED BEDSIDE REPORT FROM DAY SHIFT NURSE. PATIENT IS GETTING DIALYSIS, NO DISTRESS NOTED. DIALYSIS NURSE AT BEDSIDE. SKIN IS WARM AND DRY. IV PATENT AND INTACT. RIGHT IJ TUNNEL CATH NOTED. G-TUBE FEEDING NOTED. PLAN OF CARE WAS DISCUSSED. ALL SAFETY MEASURE IN PLACE. BED IS AT LOW POSITION. CALL LIGHT WITHIN REACH. WILL CONTINUE TO MONITOR.
--- NOTE | 2020-07-23 19:25 | NUR ---
ENDORSED TO COMMUNITY CULTURAL DEVELOPMENT OFFICER IN STABLE CONDITION FOR CONTINUITY OF CARE.
[2020-07-23 20:00] VITALS: BP 135/98
--- NOTE | 2020-07-23 20:35 | NUR ---
INITIAL ASSESSMENT DONE. CHECKED PATIENT G-TUBE RESIDUAL. OBTAINED 100CC. WILL CONTINUE TO MONITOR
--- NOTE | 2020-07-23 21:20 | NUR ---
HD OUTPUT 2L. VITALS BP 171/96, HR 101, TEMP: 98.2, SPO2: 95%.
--- NOTE | 2020-07-23 21:55 | NUR ---
ALL SCHEDULED MEDS WERE GIVEN PER ORDER. PATIENT BLOOD SUGAR 123. NO INSULIN NEED PER SLIDING SCALE PROTOCOL. WILL CONTINUE TO MONITOR.
[2020-07-23] MEDS: AMIODARONE 200 MG TAB PO SCH (21:58)
[2020-07-23] MEDS: METOPROLOL 50 MG TAB PO SCH (21:59)
--- NOTE | 2020-07-23 23:00 | NUR ---
CHECKED ON PATIENT. PATIENT IS AWAKE LAYING IN BED. RESPIRATION EVEN UNLABORED ON ROOM AIR. NO DISTRESS NOTED. WILL CONTINUE TO MONITOR.
[2020-07-24] VITALS: BP 143/66
--- NOTE | 2020-07-24 02:01 | NUR ---
CHECKED ON PATIENT. PATIENT SLEEPING RESPIRATION EVEN UNLABORED ON ROOM AIR. NO DISTRESS NOTED. WILL CONTINUE TO MONITOR
--- NOTE | 2020-07-24 03:33 | NUR ---
CHECKED PATIENT. PATIENT SLEEPING RESPIRATION EVEN UNLABORED ON ROOM AIR. NO DISTRESS NOTED. WILL CONTINUE TO MONITOR.
[2020-07-24 04:00] VITALS: BP 154/78
[2020-07-24] MEDS: BLOOD GLUCOSE MONITORING 1 DEV DEV FS SCH ×4 (07:00→21:39)
--- NOTE | 2020-07-24 07:31 | NUR ---
ENDORSED PATIENT TO DAY SHIFT NURSE FOR CONTINUITY OF CARE.
--- NOTE | 2020-07-24 07:32 | NUR ---
RECEIVED ENDORSEMENT FROM NIGHT AWAKE, ALERT, CONFUSED, BREATHING SPONTANEOUSLY AT ROOM AIR, NOT IN DISTRESS. WITH ONGOING IV FLUID WITH D5 0.9% NS AT 30ML/HOUR INFUSING AT LEFT FOREARM G22 IV CANNULA NOTED. WITH ONGOING TUBE FEEDING WITH GLUCERNA 1.2 AT 50ML/HOUR + WATER 100ML/4HOUR VIA G-TUBE. SAFETY MEASURES IN PLACE AND CONTINUE MONITOR.
[2020-07-24 08:00] VITALS: BP 168/81
[2020-07-24] MEDS: VIT-B COMP/VIT-C/FOLIC ACID 1 TAB PO SCH (08:52)
[2020-07-24] MEDS: AMIODARONE 200 MG TAB PO SCH ×2 (08:54→21:59)
[2020-07-24] MEDS: METOPROLOL 50 MG TAB PO SCH ×2 (08:56→22:00)
[2020-07-24] MEDS: POTASSIUM CHLORIDE 20% 40 MEQ/15 ML UDC PO SCH (09:01)
[2020-07-24] MEDS: DILTIAZEM 30 MG TAB PO SCH ×3 (09:03→17:38)
[2020-07-24] MEDS: levETIRAcetam 500 MG in NACL 0.9% 100 ML IV SCH ×2 (09:04→22:37)
--- NOTE | 2020-07-24 09:26 | NUR ---
G-TUBE CHECKED, NO RESIDUAL. DUE MEDICATION GIVEN
--- NOTE | 2020-07-24 11:36 | NUR ---
PASSED MODERATE AMOUNT OF SOFT STOOL, ALVARO-ANAL CARE DONE, RE-POSITIONED TO LEFT SIDE
[2020-07-24 12:00] VITALS: BP 140/72
--- NOTE | 2020-07-24 13:05 | NUR ---
HR-69 DUE DILTIAZEM VIA G-TUBE GIVEN
--- NOTE | 2020-07-24 14:38 | NUR ---
VASCULAR TECHNOLOGIST MS MARTINEZ ASKED IN THE UNIT, ACCORDING TO HER, NO FACILITY AVAILABLE FACILITY WILL ACCEPT HER.
[2020-07-24] MEDS: DEXT 5% /NACL 0.9% 1,000 ML IV SCH (15:36)
--- NOTE | 2020-07-24 15:38 | NUR ---
APPARENTLY PATIENT REMOVED HER IV CANNULA, DRESSING APPLIED, NO BLEEDING NOTED.
--- NOTE | 2020-07-24 15:45 | NUR ---
DR. HOYT INFORMED THRU TEXT MESSAGES THAT PATIENT IS SO AGITATED, NO PRN MEDS AND ACCORDING TO HIM TO GIVE ATIVAN 2MG VIA G TUBE EVERY 4 HOURS NEEDED FOR AGITATION AND RESTLESSNESS, CARRIED OUT
[2020-07-24] MEDS ORDERED: LORazepam 1 MG TAB ONE (15:51)
[2020-07-24] MEDS: LORazepam 1 MG TAB GT PRN ×2 (15:55→22:00)
[2020-07-24 16:00] VITALS: BP 155/66
--- NOTE | 2020-07-24 16:50 | NUR ---
07/24/20 RD FOLLOW UP COMPLETED PLEASE REFER TO NUTRITION ASSESSMENT UNDER CARE ACTIVITY FOR ESTIMATED NUTRITIONAL NEEDS. 1. RECOMMEND NEPRO 1.8 @ 40 ML/HR X 24 HR. START AT 10 ML/HR AND INCREASE BY 20 ML/HR Q4H. -THIS WILL PROVIDE 1728 KCAL AND 78 GM OF PROTEIN AT GOAL. 2. RECOMMEND FREE WATER FLUSH OF 200 ML Q6H OR PER MD 3. RD TO FOLLOW-UP 2-3 DAYS, HIGH RISK PREETHI HENDRIX RD
--- NOTE | 2020-07-24 17:01 | NUR ---
GLUCOSE- 153, NO INSULIN COVERAGE ORDERED.
--- NOTE | 2020-07-24 17:35 | NUR ---
PASSED MODERATE AMOUNT OF PASTY STOOL, ALVARO ANAL CARE DONE. G TUBE CHECKED, NO RESIDUAL NOTED. HR-71BPM, DUE DILTIAZEM 60MG VIA G-TUBE GIVEN. IV CANNULA G22 INSERTED AT RIGHT CEPHALIC VEIN, PATENT AND INTACT. RESUMED ABOVE FLUID
[2020-07-24] MEDS: ACETAMINOPHEN 325 MG TAB PO PRN (17:40)
--- NOTE | 2020-07-24 18:11 | NUR ---
APPARENTLY ASLEEP, NOT IN DISTRESS NOTED.
--- NOTE | 2020-07-24 19:21 | NUR ---
ENDORSED TO JOB ESTIMATOR IN STABLE CONDITION FOR CONTINUITY OF CARE
--- NOTE | 2020-07-24 19:22 | NUR ---
RECD. RESTING IN BED, EYES CLOSED BUT KEEP ON TALKING INCOMPREHENSIBLE SOUNDS, CONFUSED. IV OF D5 NS AT 30 ML/HR INFUSING, LEFT FOREARM G22. GT FEEDING OF GLUCERNA INFUSING AT 50 ML/HR. TENDS TO DO MOUTH BREATHING. SAFETY MEASURES ENFORCED. BED IN THE LOWEST POSITION, SIDE RAILS UP. BED ON ALARM. SIDE RAILS WITH PADS FOR SEIZURE PRECAUTION. NO APPEARANCE OF PAIN NOTED 0/10.
[2020-07-24 20:00] VITALS: BP 160/76
--- NOTE | 2020-07-24 21:00 | NUR ---
DISCUSSED AND REVIEWED CARE PLAN WITH GILDA BELL LVN.
--- NOTE | 2020-07-24 21:20 | NUR ---
CALLED RT TO INSTALL SUCTION METER SO THAT PATIENT WILL BE ABLE TO BE SUCTIONED, WITH GURGLING SOUNDS IN THE MOUTH.
--- NOTE | 2020-07-24 21:50 | NUR ---
RT CAME AND SUCTIONED PATIENT.
--- NOTE | 2020-07-24 22:00 | NUR ---
WITH RESTLESSNESS, MEDICATED WITH ATIVAN 2 MG. PER MD ORDER.
--- NOTE | 2020-07-24 23:00 | NUR ---
NO RESTLESSNESS OR AGITATION NOTED.
--- NOTE | 2020-07-25 | NUR ---
SUCTIONING DONE, WITH SMALL AMOUNT OF WHITISH FROTHY LIQUID FROM MOUTH.
--- NOTE | 2020-07-25 02:15 | NUR ---
PATIENT DESATURATING TO 72%. CALLED RT, INSTRUCTED TO PUT PATIENT ON OXIMIZER AT 15 LITERS.
--- NOTE | 2020-07-25 02:30 | NUR ---
RESTING IN BED WITH HOB ELEVATED TO 50 DEGREES, 02 SAT INCREASED TO 97%.
[2020-07-25] MEDS: LORazepam 1 MG TAB GT PRN (03:02)
--- NOTE | 2020-07-25 03:02 | NUR ---
AGITATED, MEDICATED WITH ATIVAN 2 MG. PER MD ORDER.
[2020-07-25 04:00] VITALS: BP 118/68
--- NOTE | 2020-07-25 04:00 | NUR ---
NO AGITATION NOTED, 02 SAT - 97% ON 15 LITER NON- REBREATHER.
--- NOTE | 2020-07-25 04:30 | NUR ---
HAD MEDIUM LIQUID BM, CLEANSED AND MADE COMFORTABLE IN BED. NOTED LEAKING OF FORMULA IN THE GT SITE. WILL ENDORSE TO AM NURSE TO INFORMED MD.
--- NOTE | 2020-07-25 07:00 | NUR ---
RESPIRATORY STATUS STABLE. 02 SAT - 95%. WILL ENDORSE TO AM SHIFT NURSE FOR CONTINUITY OF CARE.
[2020-07-25] MEDS: BLOOD GLUCOSE MONITORING 1 DEV DEV FS SCH ×4 (07:24→21:00)
[2020-07-25 08:00] VITALS: BP 110/66
[2020-07-25 08:50] LABS: BASOPHILS % (AUTO) 0.2 % (0.0-2.0); HEMATOCRIT 29.5 % (36-48); HEMOGLOBIN 8.8 g/dL (12.0-16.0); LYMPHOCYTES # (AUTO) 0.5 K/uL (2.5-16.5); LYMPHOCYTES % (AUTO) 4.6 % (20.5-51.1); MEAN CORPUSCULAR HEMOGLOBIN 29 pg (27-31); MEAN CORPUSCULAR HGB CONC 30 g/dL (33-37); MEAN CORPUSCULAR VOLUME 95.4 fL (80-94); MONOCYTES # (AUTO) 0.7 K/uL (0.8-1.0); MONOCYTES % (AUTO) 6.6 % (1.7-9.3); NEUTROPHILS # (AUTO) 9.9 K/uL (1.8-7.7); NEUTROPHILS % (AUTO) 88.6 % (42.2-75.2); PLATELET COUNT (AUTO) 370 K/uL (140-450); RED CELL DISTRIBUTION WIDTH 17.6 % (11.6-13.7); WHITE BLOOD COUNT (AUTO) 11.2 K/uL (4.8-10.8)
[2020-07-25] MEDS: DILTIAZEM 30 MG TAB PO SCH ×3 (09:00→17:00)
[2020-07-25] MEDS: METOPROLOL 50 MG TAB PO SCH ×2 (09:00→21:00)
--- NOTE | 2020-07-25 09:15 | NUR ---
PATIENT'S O2 SAT 98% WITH 15L NRB, DECREASED O2 TO 13L, WILL CONTINUE TO MONITOR O2 SAT.
[2020-07-25] MEDS: AMIODARONE 200 MG TAB PO SCH ×2 (09:56→22:39)
[2020-07-25] MEDS: levETIRAcetam 500 MG in NACL 0.9% 100 ML IV SCH ×2 (09:56→22:38)
[2020-07-25] MEDS: VIT-B COMP/VIT-C/FOLIC ACID 1 TAB PO SCH (09:56)
[2020-07-25] MEDS: POTASSIUM CHLORIDE 20% 40 MEQ/15 ML UDC PO SCH (09:57)
--- NOTE | 2020-07-25 09:58 | NUR ---
SCHEDULED MORNING MEDICATIONS GIVEN. PATIENT TOLERATED WELL. PATIENT TOLERATED G TUBE FEEING WELL, NO RESIDUAL NOTED. BP MEDS, HEPARIN AND PROCRIT WERE HOLD FOR DIALYSIS TODAY. O2 SAT 97% WITH 13L NRB, DROPPED O2 TO 11L NRB, WILL CONTINUE TO MONITOR.
--- NOTE | 2020-07-25 10:50 | NUR ---
INFORMED DR. HOYT REGARDING THE G TUBE SITE LEAKING. WILL INFORM DR. BOWERS TO CHECK THE G TUBE.
--- NOTE | 2020-07-25 11:26 | NUR ---
PERFORMED ORAL SUCTION, WITH MODERATE BROWN SEMI THICK SECRETION. PATIENT TOLERATED PROCEDURE WELL. O2 SAT 94% WITH 11L NRB. WILL CONTINUE TO MONITOR.
[2020-07-25 11:53] LABS: ANION GAP 20.5 (8-16); CARBON DIOXIDE 22.5 mmol/L (21-32); CHLORIDE 104 mmol/L (98-107); GLUCOSE 101 mg/dL (74-106); SODIUM SERUM 142 mmol/L (136-145); UREA NITROGEN, BLOOD 43 mg/dL (7-18)
--- NOTE | 2020-07-25 11:55 | NUR ---
ACCUCHECK DONE, BLOOD GLUCOSE LEVEL 74, NO INSULIN COVERAGE NEEDED. SAFETY MEASURES IN PLACE, WILL CONTINUE TO MONITOR.
[2020-07-25 12:30] LABS: CREATININE 6.4 mg/dL (0.6-1.3)
--- NOTE | 2020-07-25 15:25 | NUR ---
PATIENT VOMIT ONCE, SN PERFORMED SUCTION WITH LARGE AMOUNT OF GREENISH BROWN SECRETION. G TUBE SITE LEAKING. SOAKED. DC THE FEEDING. PATIENT'S O2 SAT DECREASED TO 80S. INFORMED DR. HOYT. PUT PATIENT BACK TO TELE MONITOR. EKG SHOWS UNCONTROLLED A FIB. INFORMED DR. HOYT.
[2020-07-25] MEDS: DEXT 5% /NACL 0.9% 1,000 ML IV SCH (15:35)
--- NOTE | 2020-07-25 15:46 | NUR ---
ROXANA NOTIFIED WITH THE HD ORDER FOR TODAY. STATED SHE WILL COME IN LATER. RN BERTHA MADE AWARE.
--- NOTE | 2020-07-25 16:15 | NUR ---
RAPID RESPONSE CALLED FOR O2 DESAT AT 1557.PATIENT'S O2 92% WITH 15L NRB. HR 160 EKG SHOWING A FIB. BS 83. BP 162/65. RT PERFORMED SUCTION.
[2020-07-25 17:00] VITALS: BP 122/82
--- NOTE | 2020-07-25 18:20 | NUR ---
DIALYSIS NURSE VICTORIANO CAME TO DO THE DIALYSIS. ORDER AND LAB RESULT PRINTED,
[2020-07-25] MEDS ORDERED: ALBUMIN HUMAN 25% 200 ML IV ONE (18:40)
--- NOTE | 2020-07-25 18:50 | NUR ---
ALBUMIN GIVEN BY DIALYSIS NURSE FOR LOW BP.
--- NOTE | 2020-07-25 19:40 | NUR ---
ENDORSED PATIENT TO PUBLIC HEALTH DIRECTOR RN FOR CONTINUITY OF CARE. PATIENT IS STILL UNDER DIALYSIS.
--- NOTE | 2020-07-25 19:45 | NUR ---
RECEIVED PT IN FAIR CONDITION FROM AM NURSE. TELE PT. WITH O2 15 NRM. APHASIC. BEDREST. ON ONGOING HD AT THIS TIME. ACCESS ON THE LT INTERNAL JUGULAR CATHETER. IV ACCESS ON THE LEFT UPPER ARM G#22. GT CLAMPED PER AM NURSE DUE TO LEAKING. DR. Cristin BOWERS IN CONSULT.NOTIFIED BY AM NURSE. FREQ ROUNDS NEEDED. BED ON OW POSITION. SIDE RAILS UP X2. CALL LIGHT PLACED WITHIN REACH. WILL CONTINUE TO MONITOR.
[2020-07-25 20:00] VITALS: BP 81/57
--- NOTE | 2020-07-25 20:40 | NUR ---
HD DONE WITH 1L OUTPUT. BP AFTER HD 107/77, HR-146. WILL GIVE ALL DUE MEDS .
[2020-07-25 22:00] VITALS: BP 120/60
[2020-07-25] MEDS ORDERED: PIPERACILLIN/TAZOBACTAM 2.25 GM VIAL IV ONE (22:36)
[2020-07-25] MEDS: PIPERACILLIN/TAZOBACTAM 2.25 GM in DEXTROSE 5% 50 ML IV SCH (22:38)
[2020-07-25] MEDS: EPOETIN ALFA 10,000 UNITS/ML VIAL SUBQ SCH (22:49)
--- NOTE | 2020-07-26 00:30 | NUR ---
HAD A LARGE SOFT BM. CLEANED AND KEPT DRY. REPOSITIONED FOR COMFORT.
--- NOTE | 2020-07-26 02:15 | NUR ---
PAGED DR. WALLER FOR PT'S BP LOW 78/50. HR-147, R- 30 SHALLOW BREATHING. CALLED BACK WITH ORDER TO GIVE NS 500ML BOLUS, DO STAT EKG AND ABG.
[2020-07-26] MEDS: DEXT 5% / NACL 0.45% 1,000 ML IV SCH ×2 (02:30→06:26)
[2020-07-26] MEDS ORDERED: NACL 0.9% 500 ML IV SCH (02:50)
--- NOTE | 2020-07-26 03:40 | NUR ---
RAPID RESPONSE CALLED @0332 FOR PT'S O2 SAT ONLY 64%. HR- 146,R- 34. TEAM CAME. DR. GAMBINO ABLE TO INTUBATE PT.
--- NOTE | 2020-07-26 03:45 | NUR ---
CALLED TIMOTHY,SON AND LET HIM KNOW ABOUT THE CHANGE IN CONDITION OF PT. MADE AWARE THAT PT WILL BE INTUBATED.
[2020-07-26] MEDS ORDERED: fentaNYL citrate 1 MG in NACL 0.9% 80 ML IV SCH (03:55)
[2020-07-26] MEDS ORDERED: NOREPINEPHRINE 4 MG in DEXTROSE 5% 250 ML IV PRN (03:55)
--- NOTE | 2020-07-26 03:59 | NUR ---
WHILE RT'S ARE WITH THE PT, PT UNRESPONSIVE. AJAY ANDRES CALLED @ 4614 TEAM CAME. CPR STARTED
[2020-07-26] MEDS ORDERED: PROPOFOL 1000 MG/100 ML PREMIX 0 ML IV ONE (04:01)
[2020-07-26] MEDS ORDERED: fentaNYL citrate 0.05 MG/ML VIAL ONE (04:20)
--- NOTE | 2020-07-26 05:00 | NUR ---
CALLED AGAIN TIMOTHY AND HE WAS MADE AWARE ABOUT PT ALREADY ON VENTILATOR.
--- NOTE | 2020-07-26 05:15 | NUR ---
RECEIVED CALL FROM ONLINE RAD, WHO STATED ET TUBE NEEDS TO BE PULLED BACK 3CM. RT CALLED TO ADJUST.
--- NOTE | 2020-07-26 05:20 | NUR ---
PT BP STABILIZED. LEVOPHED MAINTAINED AT 14MCG/MIN. CURRENT BP 94/49.
[2020-07-26 06:00] VITALS: BP 99/59
[2020-07-26] MEDS ORDERED: PIPERACILLIN/TAZOBACTAM 2.25 GM VIAL IV ONE (06:00)
[2020-07-26 06:07] VITALS: BP 83/45
[2020-07-26] MEDS: BLOOD GLUCOSE MONITORING 1 DEV DEV FS SCH ×2 (06:08→07:30)
--- NOTE | 2020-07-26 06:10 | NUR ---
PATIENT INTUBATED AT 7.5@ [address]AMBIN[address] AND PLACED ON DOCUMENTED VENT SETTINGS.VENT PLUGGED INTO RED OUTLET. BMV AT BEDSIDE. ETT SECURED WITH ANKORFAST. ALARMS SET. WILL CONT TO MONITOR
--- NOTE | 2020-07-26 06:11 | NUR ---
BLOOD SUGAR WAS CHECKED RESULT ONLY 31. D50 1 AMP GIVEN IVP ORDERED. . WILL RECHECK AGAIN LATER.
--- NOTE | 2020-07-26 06:12 | NUR ---
PATIENT ETT PULLED BACK FROM 19 TO 17CM. RN JERRY AWARE. NOTIFY RN MARY KAY TO ORDER XRAY FOR TUBE PLACEMENT.
--- NOTE | 2020-07-26 06:13 | NUR ---
INCREASED PEEP FROM 6 TO 8. SATURATION WAS LOW. WILL CONT TO MONITOR
[2020-07-26] MEDS: PIPERACILLIN/TAZOBACTAM 2.25 GM in DEXTROSE 5% 50 ML IV SCH (06:26)
--- NOTE | 2020-07-26 06:30 | NUR ---
UPDATED DR. HOYT THIS AM THAT PT IS ALREADY ON TRACH TO VENT.
--- NOTE | 2020-07-26 06:52 | NUR ---
BLOOD SUGAR AFTER THE D50 IS 85. WILL STILL CONTINUE TO MONITOR.
--- NOTE | 2020-07-26 07:55 | NUR ---
ENDORSED PT IN STABLE CONDITION TO AM NURSE FOR CONTINUITY OF CARE.
[2020-07-26] MEDS ORDERED: DOPamine 400 MG/D5W PREMIX 250 ML IV PRN (08:25)
[2020-07-26] MEDS ORDERED: VASOPRESSIN 20 UNITS in NACL 0.9% 250 ML IV SCH (08:25)
[2020-07-26] MEDS: DILTIAZEM 30 MG TAB PO SCH (09:00)
[2020-07-26] MEDS: AMIODARONE 200 MG TAB PO SCH (09:00)
[2020-07-26] MEDS: METOPROLOL 50 MG TAB PO SCH (09:00)
[2020-07-26] MEDS ORDERED: DOPPLER MC ONE (09:45)
--- NOTE | 2020-07-26 09:48 | NUR ---
PT ASYSTOLE, NO PULSE, NO BP, CODE BLUE CALLED, CPR STARTED, PLEASE SEE CODE RECORDS
--- NOTE | 2020-07-26 10:00 | NUR ---
SON TIMOTHY CALLED TO NOTIFY THE CONDITION OF PT
[2020-07-26] MEDS ORDERED: NOREPINEPHRINE 4 MG/4 ML VIAL IV ONE (10:09)
--- NOTE | 2020-07-26 10:30 | NUR ---
PERICARE DONE, LARBE SOFT BMX1
[2020-07-26] MEDS: levETIRAcetam 500 MG in NACL 0.9% 100 ML IV SCH (11:19)
[2020-07-26] MEDS: VIT-B COMP/VIT-C/FOLIC ACID 1 TAB PO SCH (11:21)
[2020-07-26] MEDS: POTASSIUM CHLORIDE 20% 40 MEQ/15 ML UDC PO SCH (11:22)
[2020-07-26] MEDS ORDERED: METOCLOPRAMIDE 10 MG/2 ML INJ VIAL IVP SCH ×2 (11:40→11:55)
--- NOTE | 2020-07-26 11:52 | NUR ---
DR LIGHT AT BEDSIDE.
[2020-07-26] MEDS ORDERED: MAGNESIUM CITRATE 300 ML BTL GT SCH (12:30)
--- NOTE | 2020-07-26 12:30 | NUR ---
NOTIFIED BY JEWELRY ENAMELER OF BRADYCARDIA HR 30. BP UN ABLE TO READ ON TR
--- NOTE | 2020-07-26 12:32 | NUR ---
DR HOYT NOTIFIED AND ARRIVED TO BEDSIDE FOR ASYSTOLE ON THE MONITOR, NO DETECTABLE PULSE OR APICAL PULSE, NO REFLUX, PUPILS FIXED, PT PRONOUNCED BY DR HOYT AT 1232.
--- NOTE | 2020-07-26 12:40 | NUR ---
PHONE CALL MADE TO SON TIMOTHY NOTIFIED OF PT'S , DEEP CONDOLENCES OFFERED, POST MORTEM PROCEDURE EXPLAINED, MORTUARY IN [facility] ([phone]) TO [employer] SERVICE SALES REPRESENTATIVE [facility] PT'S DENTURES AND LIGHT KHAN QUILT BLANKET TO BE THROWN AWAY PER TIMOTHY.
--- NOTE | 2020-07-26 14:25 | NUR ---
[facility] OF PT, CREAM GATHERER WILL CALL BACK FOR REPORT PER RAND.
--- NOTE | 2020-07-26 14:42 | NUR ---
INTELLECTUAL PROPERTY COUNSEL WEI ODEN CALLED BACK, CASE REVIEWED, OK TO RELEASE BODY TO MORTUARY.
--- NOTE | 2020-07-26 15:05 | NUR ---
[facility] - NOT CANDIDATE FOR ORGAN DONATION PER YOAV
--- NOTE | 2020-07-26 17:22 | NUR ---
EDEL KNOWLES [phone], THEY WILL CALL US WITH RAFFI.
== END 2020-07-26 12:32 | DRG 871 ==
LOC: MED 23:18 → MTU 07-13 02:59 → MMU 07-13 19:22 → MTU 07-13 20:27
PROVIDERS: ADMIT Family Medicine; ATTEND Family Medicine
PROC: 5A2204Z Restoration of Cardiac Rhythm, Single (ICD-10-PCS; principal; 2020-07-13)
PROC: 5A1D70Z Performance of Urinary Filtration, Intermittent, Less than 6 Hours Per Day (ICD-10-PCS; 2020-07-14)
PROC: 4A00X4Z Measurement of Central Nervous Electrical Activity, External Approach (ICD-10-PCS; 2020-07-15)
PROC: 5A1D70Z Performance of Urinary Filtration, Intermittent, Less than 6 Hours Per Day (ICD-10-PCS; 2020-07-16)
PROC: 5A1D70Z Performance of Urinary Filtration, Intermittent, Less than 6 Hours Per Day (ICD-10-PCS; 2020-07-17)
PROC: 5A1D70Z Performance of Urinary Filtration, Intermittent, Less than 6 Hours Per Day (ICD-10-PCS; 2020-07-20)
PROC: 0DH63UZ Insertion of Feeding Device into Stomach, Percutaneous Approach (ICD-10-PCS; 2020-07-22)
PROC: 5A1D70Z Performance of Urinary Filtration, Intermittent, Less than 6 Hours Per Day (ICD-10-PCS; 2020-07-22)
PROC: 5A1D70Z Performance of Urinary Filtration, Intermittent, Less than 6 Hours Per Day (ICD-10-PCS; 2020-07-25)
PROC: 0BH17EZ Insertion of Endotracheal Airway into Trachea, Via Natural or Artificial Opening (ICD-10-PCS; 2020-07-26)
PROC: 5A12012 Performance of Cardiac Output, Single, Manual (ICD-10-PCS; 2020-07-26)
PROC: 5A1935Z Respiratory Ventilation, Less than 24 Consecutive Hours (ICD-10-PCS; 2020-07-26)
PROC: 02HV33Z Insertion of Infusion Device into Superior Vena Cava, Percutaneous Approach (ICD-10-PCS; 2020-07-26)
DX: A41.9 Sepsis, unspecified organism (principal); G93.41 Metabolic encephalopathy; I21.A1 Myocardial infarction type 2; N17.0 Acute kidney failure with tubular necrosis; N18.6 End stage renal disease; J69.0 Pneumonitis due to inhalation of food and vomit; J96.01 Acute respiratory failure with hypoxia; E44.1 Mild protein-calorie malnutrition; N39.0 Urinary tract infection, site not specified; I12.0 Hypertensive chronic kidney disease with stage 5 chronic kidney disease or end stage renal disease; I48.20 Chronic atrial fibrillation, unspecified; N25.81 Secondary hyperparathyroidism of renal origin; T82.818A Embolism due to vascular prosthetic devices, implants and grafts, initial encounter; I47.1 Supraventricular tachycardia; E87.6 Hypokalemia; M79.7 Fibromyalgia; D63.8 Anemia in other chronic diseases classified elsewhere; G40.909 Epilepsy, unspecified, not intractable, without status epilepticus; E11.22 Type 2 diabetes mellitus with diabetic chronic kidney disease; E83.42 Hypomagnesemia; F03.90 Unspecified dementia, unspecified severity, without behavioral disturbance, psychotic disturbance, mood disturbance, and anxiety; G24.01 Drug induced subacute dyskinesia; I46.9 Cardiac arrest, cause unspecified; R13.10 Dysphagia, unspecified; Z20.828 Contact with and (suspected) exposure to other viral communicable diseases; E11.40 Type 2 diabetes mellitus with diabetic neuropathy, unspecified; I48.0 Paroxysmal atrial fibrillation; I35.0 Nonrheumatic aortic (valve) stenosis; Y83.2 Surgical operation with anastomosis, bypass or graft as the cause of abnormal reaction of the patient, or of later complication, without mention of misadventure at the time of the procedure; F39 Unspecified mood [affective] disorder; Z99.2 Dependence on renal dialysis; Z86.14 Personal history of Methicillin resistant Staphylococcus aureus infection; Z87.891 Personal history of nicotine dependence; Z98.41 Cataract extraction status, right eye; Z98.42 Cataract extraction status, left eye; Z79.899 Other long term (current) drug therapy; Y92.89 Other specified places as the place of occurrence of the external cause; Z68.28 Body mass index [BMI] 28.0-28.9, adult
CPT/HCPCS: 36415; 36600; 70450; 71045; 80048; 80053; 80305; 81001; 82150; 82803; 82948; 83036; 83605; 83690; 83735; 83880; 84100; 84134; 84436; 84443; 84484; 85025; 85610; 85730; 87040; 87081; 87086; 87804; 92526; 92610; 93005; 97110; 97112; 97161-GP; 97530; 99285; J0153; J0696; J0885; J1200; J1265; J1644; J1953; J2060; J2185; J2250; J2543; J2704; J2997; J3010; J3475; J3490; J7060; P9046